=== PATIENT | male | born 1955 | race Caucasian/White ===

== ENCOUNTER 2017-07-11 09:08 | Day surgery (SDC) | payer OTHER ==
[2017-07-10 08:31] VITALS: BMI 32.1
--- NOTE | 2017-07-10 11:48 | P.GSHP ---
History of Present Illness H&P Date: 07/10/17 Chief Complaint: Heel ulcer Patient has a large heel ulcer on the right heel. - Constitutional Constitutional: Denies chills, Denies fever - EENT Eyes: denies blurred vision, denies pain Ears, nose, mouth and throat: Denies headache, Denies sore throat - Cardiovascular Cardiovascular: Denies chest pain, Denies decreased exercise tolerance, Denies dyspnea on exertion, Denies irregular heart beat, Denies orthopnea, Denies paroxysmal nocturnal dyspnea, Denies shortness of breath - Respiratory Respiratory: Denies cough, Denies cough with sputum, Denies hemoptysis - Gastrointestinal Gastrointestinal: Denies abdominal pain, Denies coffee ground emesis, Denies diarrhea, Denies hematemesis, Denies hematochezia, Denies jaundice, Denies melena, Denies nausea, Denies vomiting - Genitourinary (Female) Genitourinary: Denies dysuria, Denies hematuria - Genitourinary (Male) Genitourinary: Denies dysuria, Denies hematuria - Musculoskeletal Musculoskeletal: Denies myalgias - Integumentary Comment: Right heel ulcer Integumentary: Denies pruritus, Denies rash - Neurological Neurological: Denies numbness, Denies weakness - Psychiatric Psychiatric: Denies anxiety, Denies depression - Endocrine Endocrine: Denies fatigue, Denies weight change - Hematologic/Lymphatic Hematologic/Lymphatic: Denies easy bleeding, Denies easy bruising, Denies lymphedema - Allergic/Immunologic Allergic/Immunologic: Denies anaphylaxis, Denies angioedema, Denies urticaria Past Medical History Past Medical History: Diabetes Mellitus, Hyperlipidemia, Skin Disorder, Sleep Apnea/CPAP/BIPAP Additional Past Medical History / Comment(s): no cpap used after weight loss, wound on rt heel WITH DRESSING, NON WEIGHT BEARING, History of Any Multi-Drug Resistant Organisms: MRSA Date of last positivie culture/infection: 06/18/17 MDRO Source:: HEEL Additional Past Surgical History / Comment(s): pilonidal cyst Past Anesthesia/Blood Transfusion Reactions: No Reported Reaction Past Psychological History: No Psychological Hx Reported Smoking Status: Former smoker Past Alcohol Use History: Rare Additional Past Alcohol Use History / Comment(s): quit smoking approx 2005, smoked for 40 yrs, 1 PPD Past Drug Use History: None Reported - Past Family History Mother Family Medical History: No Reported History Medications and Allergies Home Medications Medication Instructions Recorded Confirmed Type Ascorbic Acid [Vitamin C] 1,000 mg PO DAILY 06/06/17 07/10/17 History Aspirin [Adult Low Dose Aspirin EC] 81 mg PO DAILY 06/06/17 07/10/17 History Atorvastatin [Lipitor] 20 mg PO HS 06/06/17 07/10/17 History Insulin Aspart [NovoLOG Flexpen] 0 units SQ AC-TID 06/06/17 07/10/17 History Insulin Glargine [Lantus] 32 unit SQ HS 06/06/17 07/10/17 History Lutein Tablet 2 mg PO DAILY 06/06/17 07/10/17 History Multivitamins, Thera [Multivitamin 1 tab PO DAILY 06/06/17 07/10/17 History (formulary)] Bactrim 1 tab PO BID 07/10/17 History Allergies Allergy/AdvReac Type Severity Reaction Status Date / Time oritavancin Allergy rigors, Verified 07/10/17 08:27 chills Surgical - Exam Osteopathic Statement: *. No significant issues noted on an osteopathic structural exam other than those noted in the History and Physical/Consult. - General well developed, well nourished, no distress - Eyes normal ocular movement, no icteric - ENT no hearing loss, no congestion - Neck no masses, no bruits, trachea midline - Respiratory normal expansion, normal respiratory effort, clear to auscultation - Cardiovascular Rhythm: regular - Abdomen Abdomen: soft, non tender, no guarding, no rigid, no rebound - Integumentary 2 x 2 centimeter ulcer right heel no rash, no abnormal pigmentation - Neurologic no disoriented, no combative - Musculoskeletal normal posture - Psychiatric oriented to time, oriented to person, oriented to place, speech is normal, memory intact Assessment and Plan (1) Diabetic foot ulcer associated with type 2 diabetes mellitus Status: Acute Code(s): E11.621 - TYPE 2 DIABETES MELLITUS WITH FOOT ULCER; L97.509 - NON-PRESSURE CHRONIC ULCER OTH PRT UNSP FOOT W UNSP SEVERITY SNOMED Code(s): 784657911 Plan: Patient to be admitted for split-thickness skin graft to right heel ulcer.
[~2017-07-11 09:08] MED LIST: DEXAMETHASONE SOD PHOSPHATE 10 MG/ML 1 ML VIAL IV ONE; HYDROmorphone 0.5 MG/0.5 ML SYRINGE IVP PRN; LACTATED RINGERS 1,000 ML IV SCH; LIDOCAINE 1% 20 ML VIAL (10MG/ML) FOR IV START INTRADERMA PRN; MIDAZOLAM 2 MG/2 ML VIAL IV PRN; ONDANSETRON 4 MG/2 ML VIAL IVP ONE; SCOPOLAMINE 1.5MG/72HR PATCH TRANSDERM ONE; ceFAZolin IN SWFI 2 GM/20 ML SYRINGE IVP ONE
[2017-07-11 10:10] LABS: Glucose,Whole Blood 211 mg/dL (75-99)
[2017-07-11] MEDS ORDERED: PROPOFOL 10 MG/ML 20 ML VIAL IV ONE (11:11)
[2017-07-11] MEDS ORDERED: MIDAZOLAM 2 MG/2 ML VIAL ONE (11:11)
[2017-07-11] MEDS ORDERED: PHENYLEPHRINE-0.9% NACL SYG 1 MG/10 ML SYRINGE ONE (11:11)
[2017-07-11] MEDS ORDERED: fentaNYL (PF) 50 MCG/ML 2 ML AMP ONE (11:11)
[2017-07-11] MEDS ORDERED: LACTATED RINGERS 1,000 ML IV ONE ×2 (11:32)
--- NOTE | 2017-07-11 12:06 | P.PCN ---
Date of Procedure: 07/11/17 Preoperative Diagnosis: Diabetic ulcer posterior right heel Postoperative Diagnosis: Same Procedure(s) Performed: Split-thickness skin graft right heel Anesthesia: MAC Surgeon: Ye Preciado Estimated Blood Loss (ml): 5 Pathology: none sent Condition: stable Disposition: PACU Indications for Procedure: The patient has a chronic ulcer on the right heel which is slow to close the last portion. Operative Findings: The ulcer is about 2 x 2.7 x 0.2 cm. Once debrided it is clean and bloody. Description of Procedure: With the patient in lateral position, under benefit of IV sedation, we prepped and draped in standard fashion. We used a sharp curette to do a selective debridement of the heel. We then took a 1" x 0.5" graft which was 10/1000s thick.. This was placed on the heel. It was secured with Adaptic touch which was anchored with Steri-Strips. Over this was placed absorptive silver and gel. Gauze sponges and Sheldon wrap were utilized to cover and secured this in place. The patient tolerated the procedure well and was taken recovery area in stable condition.
[2017-07-11 12:12] VITALS: TEMP 97.4
[2017-07-11 13:41] VITALS: BP 128/72; PULSE 69; RESP 18
== END 2017-07-11 13:37 | disposition home or self-care (01) ==
LOC: OR 09:08
PROVIDERS: ATTEND Thoracic Surgery (Cardiothoracic Vascular Surgery)
DX: E11.621 Type 2 diabetes mellitus with foot ulcer (principal); L97.419 Non-pressure chronic ulcer of right heel and midfoot with unspecified severity; E11.42 Type 2 diabetes mellitus with diabetic polyneuropathy; E78.5 Hyperlipidemia, unspecified; G47.30 Sleep apnea, unspecified; Z86.14 Personal history of Methicillin resistant Staphylococcus aureus infection; Z87.891 Personal history of nicotine dependence; Z79.2 Long term (current) use of antibiotics; Z79.82 Long term (current) use of aspirin; Z79.4 Long term (current) use of insulin
CPT/HCPCS: 15120; 15004; J2250; J0690; J2405; J3010; J2370; J2704

== ENCOUNTER → 2017-08-22 | Day surgery (SDC) | payer OTHER ==
[2017-08-19 15:39] VITALS: BMI 32.1
[~2017-08-22] MED LIST changes: -DEXAMETHASONE SOD PHOSPHATE 10 MG/ML 1 ML VIAL IV ONE; -HYDROmorphone 0.5 MG/0.5 ML SYRINGE IVP PRN; +INSULIN ASPART 100 UNIT/ML 1 ML 10 ML VIAL SQ ONE; +LIDOCAINE 1% 20 ML VIAL (10MG/ML) FOR IV START INTRADERMA ONE; -LIDOCAINE 1% 20 ML VIAL (10MG/ML) FOR IV START INTRADERMA PRN; -MIDAZOLAM 2 MG/2 ML VIAL IV PRN; -ONDANSETRON 4 MG/2 ML VIAL IVP ONE; -SCOPOLAMINE 1.5MG/72HR PATCH TRANSDERM ONE; -ceFAZolin IN SWFI 2 GM/20 ML SYRINGE IVP ONE
[2017-08-22 06:59] VITALS: RESP 16; TEMP 98.8
[2017-08-22 07:10] LABS: Glucose,Whole Blood 216 mg/dL (75-99)
--- NOTE | 2017-08-22 07:59 | P.GSHP ---
History of Present Illness H&P Date: 08/22/17 Chief Complaint: History of colon polyps This is a 62-year-old male referred from Dr. Harjeet Orr. Patient presents today for colonoscopy. He has history of colon polyps. His last colonoscopy was approximately 4 years ago, it was performed in [place]. Past Medical History Past Medical History: Diabetes Mellitus, Hyperlipidemia, Sleep Apnea/CPAP/BIPAP Additional Past Medical History / Comment(s): no cpap used since wt loss, MRSA rt heel-has cast on. History of Any Multi-Drug Resistant Organisms: MRSA Date of last positivie culture/infection: 06/18/17 MDRO Source:: rt HEEL Additional Past Surgical History / Comment(s): pilonidal cyst, colonoscopy Past Anesthesia/Blood Transfusion Reactions: No Reported Reaction Smoking Status: Former smoker - Past Family History Mother Family Medical History: No Reported History Brother(s) Family Medical History: Cancer Medications and Allergies Home Medications Medication Instructions Recorded Confirmed Type Ascorbic Acid [Vitamin C] 1,000 mg PO DAILY 06/06/17 08/22/17 History Aspirin [Adult Low Dose Aspirin EC] 81 mg PO DAILY 06/06/17 08/22/17 History Atorvastatin [Lipitor] 20 mg PO HS 06/06/17 08/22/17 History Insulin Aspart [NovoLOG Flexpen] 0 units SQ AC-TID 06/06/17 08/22/17 History Insulin Glargine [Lantus] 34 unit SQ HS 06/06/17 08/22/17 History Multivitamins, Thera [Multivitamin 1 tab PO DAILY 06/06/17 08/22/17 History (formulary)] Allergies Allergy/AdvReac Type Severity Reaction Status Date / Time oritavancin Allergy rigors, Verified 08/22/17 07:13 chills Surgical - Exam Vital Signs Temp Pulse Resp BP Pulse Ox 98.8 F 102 H 16 136/72 94 L 08/22/17 06:45 08/22/17 06:45 08/22/17 06:45 08/22/17 06:45 08/22/17 06:45 - General well developed, no distress - Eyes PERRL - ENT normal pinna - Neck no masses - Respiratory normal expansion - Abdomen Abdomen: soft Results - Labs Abnormal Lab Results - Last 24 Hours (Table) 01/26/18 Range/Units 07:06 POC Glucose (mg/dL) 216 H (75-99) mg/dL Assessment and Plan Assessment: History of colon polyps. We'll perform colonoscopy.
--- NOTE | 2017-08-22 08:20 | P.OP ---
Date of Procedure: 08/22/17 Preoperative Diagnosis: History of colon polyps Postoperative Diagnosis: Normal colonoscopy Procedure(s) Performed: Colonoscopy Anesthesia: MAC Surgeon: Vignesh Villasenor Pathology: none sent Condition: stable Disposition: PACU Description of Procedure: PROCEDURE: The patient was placed on the endoscopy table in the lateral position. Digital rectal examination was performed which revealed no abnormalities. The prostate was symmetrical without nodules. Flexible colonoscope was then placed in the patient's anus and passed throughout the entire colon. The ileocecal valve was visualized. The cecum, ascending, transverse, descending and sigmoid colon were normal. The rectum was normal as well. There were no masses, polyps or diverticula noted in the entire colon. SUMMARY OF FINDINGS: Normal colonoscopy.
[2017-08-22 08:33] LABS: Glucose,Whole Blood 208 mg/dL (75-99)
[2017-08-22 08:52] VITALS: BP 125/75; PULSE 80
== END | disposition home or self-care (01) ==
LOC: ORWHC2ENDO 06:29
PROVIDERS: ATTEND Surgery
DX: Z12.11 Encounter for screening for malignant neoplasm of colon (principal); I10 Essential (primary) hypertension; E78.5 Hyperlipidemia, unspecified; G47.33 Obstructive sleep apnea (adult) (pediatric); E11.9 Type 2 diabetes mellitus without complications; Z86.010 Personal history of colon polyps; Z88.1 Allergy status to other antibiotic agents; Z79.82 Long term (current) use of aspirin; Z79.4 Long term (current) use of insulin; Z79.899 Other long term (current) drug therapy; Z87.891 Personal history of nicotine dependence; Z86.14 Personal history of Methicillin resistant Staphylococcus aureus infection; Z80.9 Family history of malignant neoplasm, unspecified
CPT/HCPCS: 45378

== ENCOUNTER 2018-07-17 21:04 | Inpatient (IN) | payer MEDICARE, OTHER ==
[2018-07-17] MEDS ORDERED: ASPIRIN 81 MG PO STA (21:54)
[2018-07-17] MEDS ORDERED: methylPREDNISolone SOD SUCCI 125 MG/2 ML VIAL IV STA (21:55)
[2018-07-17] MEDS ORDERED: IPRATROPIUM-ALBUTEROL 3 ML NEB INHALATION STA (21:55)
--- NOTE | 2018-07-17 22:02 | ED ---
SOB HPI - General Chief Complaint: Shortness of Breath Stated Complaint: COPD ALLISON Time Seen by Provider: 07/17/18 21:44 Source: patient Mode of arrival: ambulatory Limitations: no limitations - History of Present Illness Initial Comments: Patient is a 63-year-old male presents with a chief complaint of shortness of breath. He states this is been gradually getting worse over the last 2 weeks. He states that he works in [place] and has to commute weekly. He denies fever or chills but states that the exertional nature of his shortness of breath has progressively gotten worse. He cannot identify an inciting incident. There are no relieving or alleviating factors. There are no previous similar episodes. - Related Data Home Medications Medication Instructions Recorded Confirmed Ascorbic Acid [Vitamin C] 1,000 mg PO DAILY 06/06/17 07/17/18 Aspirin [Adult Low Dose Aspirin EC] 81 mg PO DAILY 06/06/17 07/17/18 Atorvastatin [Lipitor] 20 mg PO HS 06/06/17 07/17/18 Insulin Aspart [NovoLOG Flexpen] 0 units SQ AC-TID 06/06/17 07/17/18 Insulin Glargine [Lantus] 40 unit SQ QAM 06/06/17 07/17/18 Multivitamins, Thera [Multivitamin 1 tab PO DAILY 06/06/17 07/17/18 (formulary)] Gabapentin 600 mg PO DAILY 07/17/18 07/17/18 [place]-3 Fatty Acids/Fish Oil [Fish 1 cap PO DAILY 07/17/18 07/17/18 Oil 1,000 mg Softgel] Allergies Allergy/AdvReac Type Severity Reaction Status Date / Time oritavancin Allergy rigors, Verified 07/17/18 21:27 chills Review of Systems ROS Statement: Those systems with pertinent positive or pertinent negative responses have been documented in the HPI. ROS Other: All systems not noted in ROS Statement are negative. Respiratory: Reports: dyspnea Past Medical History Past Medical History: Diabetes Mellitus, Hyperlipidemia, Skin Disorder, Sleep Apnea/CPAP/BIPAP Additional Past Medical History / Comment(s): no cpap used, wound on rt heel, History of Any Multi-Drug Resistant Organisms: MRSA Date of last positivie culture/infection: 06/18/17 MDRO Source:: HEEL Additional Past Surgical History / Comment(s): pilonidal cyst, colonoscopy 1-26- 18 Past Anesthesia/Blood Transfusion Reactions: No Reported Reaction Past Psychological History: No Psychological Hx Reported Smoking Status: Former smoker - Past Family History Mother Family Medical History: No Reported History Brother(s) Family Medical History: Cancer General Exam Limitations: no limitations General appearance: alert, in no apparent distress Head exam: Present: atraumatic, normocephalic Eye exam: Present: normal appearance ENT exam: Present: normal exam Neck exam: Present: normal inspection Respiratory exam: Present: respiratory distress, rales, decreased breath sounds Cardiovascular Exam: Present: regular rate, normal rhythm GI/Abdominal exam: Present: soft, distended. Absent: tenderness, guarding Rectal exam: Present: deferred Extremities exam: Present: normal inspection, other (right calf distended and tense, though patient states this is chronic and 2/2 an injury he sustained in his teens. ). Absent: calf tenderness Back exam: Present: normal inspection Neurological exam: Present: alert, oriented X3 Psychiatric exam: Present: normal affect, normal mood Skin exam: Present: warm, dry, intact Course Vital Signs 07/17/18 07/17/18 07/17/18 21:06 22:11 22:19 Temperature 98.7 F Pulse Rate 105 H 89 Respiratory 16 22 Rate Blood Pressure 122/72 O2 Sat by Pulse 77 L Oximetry 07/17/18 07/17/18 07/17/18 22:30 22:48 23:23 Temperature Pulse Rate 90 104 H 100 Respiratory 18 20 Rate Blood Pressure 136/69 118/69 O2 Sat by Pulse 91 L 91 L Oximetry Medical Decision Making - Medical Decision Making Patient presents with a chief complaint shortness of breath. On initial evaluation, the patient is hypoxic into the mid 70s, vital signs are otherwise unremarkable. EKG performed at 2117 shows sinus rhythm with a rate of 97 bpm. Segments appear to be within normal limits, no acute signs of ischemia, no previous EKGs to compare to. Patient saturating low 90s on 4 L of nasal cannula. High concern for PE versus less likely new onset CHF. Patient to be evaluated with basic labs including cardiac enzymes, will have an x-ray of the chest and CT angiogram of the chest. 1:03 AM Repeat EKG shows sinus tachycardia with a rate of 104 beats per minutes. Waveforms are similar, there are no acute signs of ischemia. Lab evaluation of this patient shows an elevated troponin at 0.39. Labs are otherwise unremarkable. Chest x-ray computed tomography scan did not show any evidence of pulmonary embolus though images are consistent with pulmonary fibrosis with pulmonary infiltrates. At this time I think that infectious etiology is less likely the patient was given an initial dose of antibiotics. Pulmonary infiltrates thought to be secondary to cardiogenic process. On reevaluation patient still saturating high 80% to low 90% 4 L of oxygen nasal cannula. He was given a 2 g transdermal nitroglycerin patch, 40 mg of Lasix, and placed on high flow nasal cannula. Prior to initiation of high flow, oxygen saturation was noted to be 94% and the patient appears be more comfortable. Blood pressure remains stable. Patient will require admission, case discussed with Dr. Ceballos who will admit this patient in the morning. Patient and his are agreeable with the care plan. - Lab Data Result diagrams: 07/17/18 21:52 07/17/18 21:52 Lab Results 07/17/18 07/17/18 07/17/18 Range/Units 21:52 21:52 21:52 WBC 9.8 (3.8-10.6) k/uL RBC 4.90 (4.30-5.90) m/uL Hgb 14.7 (13.0-17.5) gm/dL Hct 44.8 (39.0-53.0) % MCV 91.4 (80.0-100.0) fL MCH 30.1 (25.0-35.0) pg MCHC 32.9 (31.0-37.0) g/dL RDW 14.5 (11.5-15.5) % Plt Count 255 (150-450) k/uL Neutrophils % 67 % Lymphocytes % 21 % Monocytes % 5 % Eosinophils % 3 % Basophils % 0 % Neutrophils # 6.6 (1.3-7.7) k/uL Lymphocytes # 2.1 (1.0-4.8) k/uL Monocytes # 0.5 (0-1.0) k/uL Eosinophils # 0.3 (0-0.7) k/uL Basophils # 0.0 (0-0.2) k/uL VBG pH (7.31-7.41) VBG pCO2 (37-51) mmHg VBG HCO3 (24-28) mmol/L Sodium 139 (137-145) mmol/L Potassium 4.5 (3.5-5.1) mmol/L Chloride 106 (98-107) mmol/L Carbon Dioxide 23 (22-30) mmol/L Anion Gap 10 mmol/L BUN 20 (9-20) mg/dL Creatinine 0.88 (0.66-1.25) mg/dL Est GFR (CKD-EPI)AfAm >90 (>60 ml/min/1.73 sqM) Est GFR (CKD-EPI)NonAf >90 (>60 ml/min/1.73 sqM) Glucose 129 H (74-99) mg/dL Plasma Lactic Acid Fred 1.4 (0.7-2.0) mmol/L Calcium 9.2 (8.4-10.2) mg/dL Total Bilirubin 0.9 (0.2-1.3) mg/dL AST 40 (17-59) U/L ALT 31 (21-72) U/L Alkaline Phosphatase 81 (38-126) U/L Troponin I (0.000-0.034) ng/mL NT-Pro-B Natriuret Pep pg/mL Total Protein 6.9 (6.3-8.2) g/dL Albumin 3.4 L (3.5-5.0) g/dL 07/17/18 07/17/18 07/17/18 Range/Units 21:52 21:52 21:52 WBC (3.8-10.6) k/uL RBC (4.30-5.90) m/uL Hgb (13.0-17.5) gm/dL Hct (39.0-53.0) % MCV (80.0-100.0) fL MCH (25.0-35.0) pg MCHC (31.0-37.0) g/dL RDW (11.5-15.5) % Plt Count (150-450) k/uL Neutrophils % % Lymphocytes % % Monocytes % % Eosinophils % % Basophils % % Neutrophils # (1.3-7.7) k/uL Lymphocytes # (1.0-4.8) k/uL Monocytes # (0-1.0) k/uL Eosinophils # (0-0.7) k/uL Basophils # (0-0.2) k/uL VBG pH 7.37 (7.31-7.41) VBG pCO2 42 (37-51) mmHg VBG HCO3 24 (24-28) mmol/L Sodium (137-145) mmol/L Potassium (3.5-5.1) mmol/L Chloride (98-107) mmol/L Carbon Dioxide (22-30) mmol/L Anion Gap mmol/L BUN (9-20) mg/dL Creatinine (0.66-1.25) mg/dL Est GFR (CKD-EPI)AfAm (>60 ml/min/1.73 sqM) Est GFR (CKD-EPI)NonAf (>60 ml/min/1.73 sqM) Glucose (74-99) mg/dL Plasma Lactic Acid Fred (0.7-2.0) mmol/L Calcium (8.4-10.2) mg/dL Total Bilirubin (0.2-1.3) mg/dL AST (17-59) U/L ALT (21-72) U/L Alkaline Phosphatase (38-126) U/L Troponin I 0.396 H* (0.000-0.034) ng/mL NT-Pro-B Natriuret Pep 818 pg/mL Total Protein (6.3-8.2) g/dL Albumin (3.5-5.0) g/dL 07/17/18 Range/Units 23:50 WBC (3.8-10.6) k/uL RBC (4.30-5.90) m/uL Hgb (13.0-17.5) gm/dL Hct (39.0-53.0) % MCV (80.0-100.0) fL MCH (25.0-35.0) pg MCHC (31.0-37.0) g/dL RDW (11.5-15.5) % Plt Count (150-450) k/uL Neutrophils % % Lymphocytes % % Monocytes % % Eosinophils % % Basophils % % Neutrophils # (1.3-7.7) k/uL Lymphocytes # (1.0-4.8) k/uL Monocytes # (0-1.0) k/uL Eosinophils # (0-0.7) k/uL Basophils # (0-0.2) k/uL VBG pH (7.31-7.41) VBG pCO2 (37-51) mmHg VBG HCO3 (24-28) mmol/L Sodium (137-145) mmol/L Potassium (3.5-5.1) mmol/L Chloride (98-107) mmol/L Carbon Dioxide (22-30) mmol/L Anion Gap mmol/L BUN (9-20) mg/dL Creatinine (0.66-1.25) mg/dL Est GFR (CKD-EPI)AfAm (>60 ml/min/1.73 sqM) Est GFR (CKD-EPI)NonAf (>60 ml/min/1.73 sqM) Glucose (74-99) mg/dL Plasma Lactic Acid Fred (0.7-2.0) mmol/L Calcium (8.4-10.2) mg/dL Total Bilirubin (0.2-1.3) mg/dL AST (17-59) U/L ALT (21-72) U/L Alkaline Phosphatase (38-126) U/L Troponin I 0.294 H* (0.000-0.034) ng/mL NT-Pro-B Natriuret Pep pg/mL Total Protein (6.3-8.2) g/dL Albumin (3.5-5.0) g/dL Disposition Clinical Impression: Congestive heart failure, Hypoxia, Elevated troponin I level, Pulmonary fibrosis, Pulmonary infiltrate Disposition: ADMITTED IP TO THIS HOSP Condition: Fair Is patient prescribed a controlled substance at d/c from ED?: No Referrals: Harjeet Long DO [Primary Care Provider] - 1-2 days Decision to Admit Reason: Admit from EC - Out of Hospital Transfer - Req. Specs Out of Hospital Transfer - Requested Specifics: Telemetry Unit
[2018-07-17 22:07] LABS: Basophils % (A) 0 %; Eosinophils # (A) 0.3 k/uL (0-0.7); Eosinophils % (A) 3 %; HCT 44.8 % (39.0-53.0); HGB 14.7 gm/dL (13.0-17.5); Lymphocytes # (A) 2.1 k/uL (1.0-4.8); Lymphocytes % (A) 21 %; MCH 30.1 pg (25.0-35.0); MCHC 32.9 g/dL (31.0-37.0); MCV 91.4 fL (80.0-100.0); Mean Platelet Volume 6.8; Monocytes # (A) 0.5 k/uL (0-1.0); Monocytes % (A) 5 %; Neutrophils # (A) 6.6 k/uL (1.3-7.7); Neutrophils % (A) 67 %; Platelet Count 255 k/uL (150-450); RDW 14.5 % (11.5-15.5); VBG PH 7.37 (7.31-7.41); WBC 9.8 k/uL (3.8-10.6)
--- NOTE | 2018-07-17 22:12 | XR ---
EXAMINATION TYPE: XR chest 2V DATE OF EXAM: 07/17/2018 COMPARISON: NONE HISTORY: Wrist pain TECHNIQUE: Frontal and lateral views of the chest are obtained. FINDINGS: There is general coarsening of interstitial pulmonary markings. Heart size is normal. Ther e is no pleural effusion. There is no gross heart failure. There are chest leads. IMPRESSION: Extensive interstitial pulmonary infiltrates consistent with pulmonary fibrosis. Normal heart.
[2018-07-17 22:16] LABS: ALT 31 U/L (21-72); AST 40 U/L (17-59); Albumin 3.4 g/dL (3.5-5.0); Alkaline Phosphatase 81 U/L (38-126); Anion Gap 10 mmol/L; Blood Urea Nitrogen 20 mg/dL (9-20); Calcium 9.2 mg/dL (8.4-10.2); Carbon Dioxide 23 mmol/L (22-30); Chloride 106 mmol/L (98-107); Glucose 129 mg/dL (74-99); Potassium 4.5 mmol/L (3.5-5.1); Sodium 139 mmol/L (137-145); Total Bilirubin 0.9 mg/dL (0.2-1.3); Total Protein 6.9 g/dL (6.3-8.2)
--- NOTE | 2018-07-17 23:15 | CT ---
EXAMINATION TYPE: CT chest angio for PE DATE OF EXAM: 07/17/2018 COMPARISON: None HISTORY: SOB, COPD CT DLP: 616.6 mGycm Automated exposure control for dose reduction was used. CONTRAST: CT Chest for pulmonary embolism performed with with IV Contrast, patient injected with 78cc mL of Iso pavan 370. FINDINGS: There are 3-D post processed images. There is extensive interstitial infiltrate throughout the lungs. Heart is borderline enlarged. There is no pericardial effusion. There is no pleural effusion. Thoracic aorta is intact. There is no evide nce of aneurysm or dissection. I see no filling defects in the pulmonary arteries. There are a few br onchial lymph nodes measure up to 1 cm. There are multiple mediastinal lymph nodes measure up to 1.5 cm. The bony thorax is intact. There is spurring in the thoracic spine. IMPRESSION: Advanced pulmonary fibrosis. No evidence of pulmonary embolism. Mediastinal and bronchial adenopathy could relate to sarcoidosis.
[2018-07-17] MEDS ORDERED: AZITHROMYCIN 500 MG in SODIUM CHLORIDE 0.9% 250 ML IVPB STA (23:33)
[2018-07-17] MEDS ORDERED: FUROSEMIDE 10 MG/ML 4 ML VIAL IV STA (23:33)
[2018-07-17] MEDS ORDERED: NITROGLYCERIN 0.2MG/HR PATCH TRANSDERM STA (23:33)
[2018-07-17] MEDS ORDERED: cefTRIAXone 1,000 MG VIAL (IM USE) IM STA (23:33)
[2018-07-18] MEDS ORDERED: NALOXONE 0.4 MG/ML 1 ML VIAL IV PRN (01:08)
[2018-07-18 06:56] LABS: Glucose,Whole Blood 327 mg/dL (75-99)
[2018-07-18] MEDS ORDERED: methylPREDNISolone SOD SUCCI 40 MG/ML 1 ML VIAL IV SCH (08:00)
[2018-07-18] MEDS: INSULIN ASPART 100 UNIT/ML 1 ML 10 ML VIAL SQ SCH ×4 (08:58→21:19)
[2018-07-18] MEDS ORDERED: DOXYCYCLINE 100 MG CAP PO SCH (09:00)
[2018-07-18] MEDS: IPRATROPIUM-ALBUTEROL 3 ML NEB INHALATION SCH ×5 (09:55→23:36)
[2018-07-18] MEDS: BUDESONIDE 0.5 MG/2 ML NEBU INHALATION SCH ×2 (09:55→20:56)
[2018-07-18] MEDS: INSULIN DETEMIR 100 UNIT/ML 10 ML VIAL SQ SCH (10:04)
[2018-07-18 11:01] VITALS: BMI 34.2
[2018-07-18] MEDS: GABAPENTIN 300 MG CAP PO SCH (11:16)
--- NOTE | 2018-07-18 11:21 | P.HPIM ---
History of Present Illness Patient is a very pleasant 58-year-old gentleman with came in with comments of shortness of breath has been going on for about 2 weeks slowly progressively getting worse patient is presently on 6 L of oxygen doesn't have any history of COPD use to smoke about 11 years ago. 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 Patient does have fine crackles consistent with pulmonary fibrosis as well patient denied any orthopnea proximal nocturnal dyspnea patient was having dry cough for long time beyond that patient denied any fever chills nausea vomiting abdominal pain. Patient was started on systemic steroids. Patient is diabetic does have minimally elevated troponins of 0.3 which trended down. EKG showed minor nonspecific ST depressions not significant on the lateral leads. Review of Systems REVIEW OF SYSTEMS: CONSTITUTIONAL: No fever, no malaise, no fatigue. HEENT: No recent visual problems or hearing problems. Denied any sore throat. CARDIOVASCULAR: No chest pain, orthopnea, PND, no palpitations, no syncope. PULMONARY:, no hemoptysis. GASTROINTESTINAL: No diarrhea, no nausea, no vomiting, no abdominal pain. NEUROLOGICAL: No headaches, no weakness, no numbness. HEMATOLOGICAL: Denies any bleeding or petechiae. GENITOURINARY: Denies any burning micturition, frequency, or urgency. MUSCULOSKELETAL/RHEUMATOLOGICAL: Denies any joint pain, swelling, or any muscle pain. ENDOCRINE: Denies any polyuria or polydipsia. The rest of the 14-point review of systems is negative. Past Medical History Past Medical History: COPD, Diabetes Mellitus, Hyperlipidemia, Skin Disorder, Sleep Apnea/CPAP/BIPAP Additional Past Medical History / Comment(s): no cpap used, previous wound on rt heel, told you had COPD but never had formal testing History of Any Multi-Drug Resistant Organisms: MRSA Date of last positivie culture/infection: 06/18/17 MDRO Source:: HEEL Additional Past Surgical History / Comment(s): pilonidal cyst, colonoscopy Past Anesthesia/Blood Transfusion Reactions: No Reported Reaction Smoking Status: Former smoker - Past Family History Mother Family Medical History: No Reported History Additional Family Medical History / Comment(s): congenital heart defects Brother(s) Family Medical History: Cancer Father Family Medical History: Hypertension Medications and Allergies Home Medications Medication Instructions Recorded Confirmed Type Ascorbic Acid [Vitamin C] 1,000 mg PO DAILY 06/06/17 07/17/18 History Aspirin [Adult Low Dose Aspirin EC] 81 mg PO DAILY 06/06/17 07/17/18 History Atorvastatin [Lipitor] 20 mg PO HS 06/06/17 07/17/18 History Insulin Aspart [NovoLOG Flexpen] 0 units SQ AC-TID 06/06/17 07/17/18 History Insulin Glargine [Lantus] 40 unit SQ QAM 06/06/17 07/17/18 History Multivitamins, Thera [Multivitamin 1 tab PO DAILY 06/06/17 07/17/18 History (formulary)] Gabapentin 600 mg PO DAILY 07/17/18 07/17/18 History [place]-3 Fatty Acids/Fish Oil [Fish 1 cap PO DAILY 07/17/18 07/17/18 History Oil 1,000 mg Softgel] Allergies Allergy/AdvReac Type Severity Reaction Status Date / Time oritavancin Allergy rigors, Verified 07/17/18 21:27 chills Physical Exam Vitals: Vital Signs Temp Pulse Pulse Resp BP BP Pulse Ox 07/18/18 08:00 97.5 F L 91 18 125/69 94 L 07/18/18 06:00 98.5 F 85 20 109/55 97 07/18/18 02:05 98 22 07/18/18 02:00 97.8 F 98 20 128/64 93 L 07/18/18 01:09 96 18 109/69 96 07/17/18 23:23 100 20 118/69 91 L 07/17/18 22:48 104 H 18 136/69 91 L 07/17/18 22:30 90 07/17/18 22:19 22 07/17/18 22:11 89 07/17/18 21:06 98.7 F 105 H 16 122/72 77 L Intake and Output 07/17/18 07/18/18 07/18/18 22:59 06:59 14:59 Other: Voiding Method Urinal # Voids 1 Weight 108.862 kg 111.4 kg 111.4 kg PHYSICAL EXAMINATION: GENERAL: The patient is alert and oriented x3, not in any acute distress. Well developed, well nourished. HEENT: Pupils are round and equally reacting to light. EOMI. No scleral icterus. No conjunctival pallor. Normocephalic, atraumatic. No pharyngeal erythema. No thyromegaly. CARDIOVASCULAR: S1 and S2 present. No murmurs, rubs, or gallops. PULMONARY: Diffuse fine bilateral crackles ABDOMEN: Soft, nontender, nondistended, normoactive bowel sounds. No palpable organomegaly. MUSCULOSKELETAL: No joint swelling or deformity. EXTREMITIES: No cyanosis, clubbing, or pedal edema. NEUROLOGICAL: Gross neurological examination did not reveal any focal deficits. SKIN: No rashes. Results CBC & Chem 7: 07/17/18 21:52 07/17/18 21:52 Labs: Abnormal Lab Results - Last 24 Hours (Table) 07/17/18 07/17/18 07/17/18 Range/Units 21:52 21:52 23:50 Glucose 129 H (74-99) mg/dL POC Glucose (mg/dL) (75-99) mg/dL Troponin I 0.396 H* 0.294 H* (0.000-0.034) ng/mL Albumin 3.4 L (3.5-5.0) g/dL 07/18/18 Range/Units 06:54 Glucose (74-99) mg/dL POC Glucose (mg/dL) 327 H (75-99) mg/dL Troponin I (0.000-0.034) ng/mL Albumin (3.5-5.0) g/dL Thrombosis Risk Factor Assmnt - Choose All That Apply Any of the Below Risk Factors Present?: Yes Each Factor Represents 1 point: Abnormal pulmonary function (COPD), Obesity ( BMI >25), Serious lung disease incl. pneumonia (< 1month), Swollen legs (current ) Other Risk Factors: Yes Each Risk Factor Represents 2 Points: Age 61-74 years Thrombosis Risk Factor Assessment Total Risk Factor Score: 6 Thrombosis Risk Factor Assessment Level: High Risk Assessment and Plan Plan: -Acute hypoxic respiratory failure probably secondary to pulmonary fibrosis with a competent of mild COPD which was never diagnosed patient was started on systemic steroids dioxide and will be continued there is no evidence of pneumonia ceftriaxone as azithromycin were discontinued -Mildly elevated troponin secondary to hypoxemia type II non-ST elevation myocardial infarction etiology will evaluate the patient will obtain echocardiogram. -Type 2 diabetes mellitus patient's blood sugars are elevated because of the systemic steroids will increase the dose of Lantus and patient will be on steroids scale insulin -Hyperlipidemia -Sleep apnea and uses CPAP machine -Possible mild COPD with mild acute exacerbation
--- NOTE | 2018-07-18 11:39 | P.CRDCN ---
History of Present Illness Consult date: 07/18/18 Requesting physician: Moni Pizarro Consult reason: chest pain, shortness of breath Chief complaint: Exertional shortness of breath and chest History of present illness: This is a pleasant 63-year-old gentleman who has history of diabetes, hyperlipidemia, no hypertension, current nonsmoker, however patient has smoked heavily in the past for about 40 years of 1 pack per day smoker. Presents to the hospital mainly with symptoms of exertional shortness of breath. According to the patient, he has noticed these symptoms become quite severe over the past 2 weeks, the states that she's noticed it for over a year that he's progressively more and more exertionally short of breath. The patient on his job used to walk several miles per day without any dyspnea or problems at all, he states now he cannot walk from his hotel room to his truck without getting severely short of breath, he also states that he has significant chest heaviness and pressure at the time that these symptoms occur. Chest x-ray showed extensive interstitial pulmonary infiltrates consistent with pulmonary fibrosis. CAT scan of the chest showed advanced pulmonary fibrosis, no evidence of any pulmonary embolism. Mediastinotomy and bronchial adenopathy could relate to sarcoidosis. EKG shows sinus tachycardia with nonspecific ST-T wave changes ST depression in the lateral leads.. EKG shows normal sinus rhythm with PACs, nonspecific ST-T wave changes. Blood pressure on arrival here 122/70 with a heart rate in the low 100s, 77% on room air, temperature 98.7. Blood pressure this morning 125/60 with a heart rate in the 90s, 94% on 8 L of oxygen. White blood cell count 9.8, hemoglobin 14.7, platelet count 255. PH on admission 7.3, pCO2 42, HCO3 24. Sodium 139, potassium 4.5, BUN 20 , creatinine 0.8. BNP level 818. Troponin 0.39, 0.29. According to the patient, he has been told in the past has some mild COPD, never has followed with a pulmonary doctor. He has never been told in the past to have any issues with pulmonary fibrosis. Past Medical History Past Medical History: COPD, Diabetes Mellitus, Hyperlipidemia, Skin Disorder, Sleep Apnea/CPAP/BIPAP Additional Past Medical History / Comment(s): no cpap used, previous wound on rt heel, told you had COPD but never had formal testing History of Any Multi-Drug Resistant Organisms: MRSA Date of last positivie culture/infection: 06/18/17 MDRO Source:: HEEL Additional Past Surgical History / Comment(s): pilonidal cyst, colonoscopy Past Anesthesia/Blood Transfusion Reactions: No Reported Reaction Smoking Status: Former smoker - Past Family History Mother Family Medical History: No Reported History Additional Family Medical History / Comment(s): congenital heart defects Brother(s) Family Medical History: Cancer Father Family Medical History: Hypertension Medications and Allergies Home Medications Medication Instructions Recorded Confirmed Type Ascorbic Acid [Vitamin C] 1,000 mg PO DAILY 06/06/17 07/17/18 History Aspirin [Adult Low Dose Aspirin EC] 81 mg PO DAILY 06/06/17 07/17/18 History Atorvastatin [Lipitor] 20 mg PO HS 06/06/17 07/17/18 History Insulin Aspart [NovoLOG Flexpen] 0 units SQ AC-TID 06/06/17 07/17/18 History Insulin Glargine [Lantus] 40 unit SQ QAM 06/06/17 07/17/18 History Multivitamins, Thera [Multivitamin 1 tab PO DAILY 06/06/17 07/17/18 History (formulary)] Gabapentin 600 mg PO DAILY 07/17/18 07/17/18 History [place]-3 Fatty Acids/Fish Oil [Fish 1 cap PO DAILY 07/17/18 07/17/18 History Oil 1,000 mg Softgel] Allergies Allergy/AdvReac Type Severity Reaction Status Date / Time oritavancin Allergy rigors, Verified 07/17/18 21:27 chills Physical Exam Vitals: Vital Signs Temp Pulse Pulse Resp BP BP Pulse Ox 07/18/18 08:00 97.5 F L 91 18 125/69 94 L 07/18/18 06:00 98.5 F 85 20 109/55 97 07/18/18 02:05 98 22 07/18/18 02:00 97.8 F 98 20 128/64 93 L 07/18/18 01:09 96 18 109/69 96 07/17/18 23:23 100 20 118/69 91 L 07/17/18 22:48 104 H 18 136/69 91 L 07/17/18 22:30 90 07/17/18 22:19 22 07/17/18 22:11 89 12/21/18 21:06 98.7 F 105 H 16 122/72 77 L Intake and Output 07/17/18 07/18/18 07/18/18 22:59 06:59 14:59 Other: Voiding Method Urinal # Voids 1 Weight 108.862 kg 111.4 kg 111.4 kg PHYSICAL EXAMINATION: GENERAL: 63-year-old gentleman in no acute distress at the time of my examination HEENT: Head is atraumatic, normocephalic. Pupils equal, round. Sclera anicteric. Conjunctiva are clear. Mucous membranes of the mouth are moist. Neck is supple. There is no elevated jugular venous pressure. No carotid bruit is heard. HEART EXAMINATION: Heart S1, S2 normal. No murmur or gallop heard. CHEST EXAMINATION: Lungs reveal fibrotic rales to the bases, otherwise clear ABDOMEN: Soft, nontender. Bowel sounds are heard. No organomegaly noted. EXTREMITIES: 2+ peripheral pulses with trace evidence of peripheral edema and no calf tenderness noted. NEUROLOGIC patient is awake, alert and oriented X3. . Results 07/17/18 21:52 07/17/18 21:52 Cardiac Enzymes 07/17/18 07/17/18 07/17/18 Range/Units 21:52 21:52 23:50 AST 40 (17-59) U/L Troponin I 0.396 H* 0.294 H* (0.000-0.034) ng/mL CBC 07/17/18 Range/Units 21:52 WBC 9.8 (3.8-10.6) k/uL RBC 4.90 (4.30-5.90) m/uL Hgb 14.7 (13.0-17.5) gm/dL Hct 44.8 (39.0-53.0) % Plt Count 255 (150-450) k/uL Comprehensive Metabolic Panel 07/17/18 Range/Units 21:52 Sodium 139 (137-145) mmol/L Potassium 4.5 (3.5-5.1) mmol/L Chloride 106 (98-107) mmol/L Carbon Dioxide 23 (22-30) mmol/L BUN 20 (9-20) mg/dL Creatinine 0.88 (0.66-1.25) mg/dL Glucose 129 H (74-99) mg/dL Calcium 9.2 (8.4-10.2) mg/dL AST 40 (17-59) U/L ALT 31 (21-72) U/L Alkaline Phosphatase 81 (38-126) U/L Total Protein 6.9 (6.3-8.2) g/dL Albumin 3.4 L (3.5-5.0) g/dL Current Medications Generic Name Dose Route Start Last Admin Trade Name Freq PRN Reason Stop Dose Admin Albuterol/Ipratropium 3 ml 07/18/18 08:00 07/18/18 09:55 Duoneb 0.5 Mg-3 Mg/3 Ml Soln INHALATION Not Given RT-Q4H [facility] Aspirin 81 mg 07/19/18 09:00 Aspirin PO DAILY [facility] Atorvastatin Calcium 20 mg 07/18/18 21:00 Lipitor PO HS [facility] Budesonide 0.5 mg 07/18/18 08:00 07/18/18 09:55 Pulmicort INHALATION Not Given RT-BID [facility] Doxycycline Monohydrate 100 mg 07/18/18 09:00 Vibramycin PO BID [facility] Gabapentin 600 mg 07/18/18 10:00 Neurontin PO DAILY [facility] Insulin Aspart 0 unit 07/18/18 07:46 07/18/18 08:58 Novolog SQ Not Given ACHS [facility] Protocol Insulin Detemir 50 unit 07/18/18 10:00 07/18/18 10:04 Levemir SQ Not Given QAM [facility] Methylprednisolone Sodium Succinate 60 mg 07/18/18 12:00 Solu-Medrol IV Q6HR [facility] Naloxone HCl 0.2 mg 07/18/18 01:08 Narcan IV Q2M PRN Opioid Reversal Intake and Output 07/17/18 07/18/18 07/18/18 22:59 06:59 14:59 Other: Voiding Method Urinal # Voids 1 Weight 108.862 kg 111.4 kg 111.4 kg Patient Weight 07/19/18 06:59 Weight 111.4 kg 07/17/18 21:52 07/17/18 21:52 EKG Interpretations (text) EKG shows a sinus tachycardia with ST depression noted in the lateral leads. Assessment and Plan Plan: Assessment and plan #1 symptoms of progressively worsening exertional shortness of breath, could be secondary to pulmonary fibrosis, chest x-ray and CAT scan of the chest reveal pulmonary fibrosis., Oxygen level on admission was 77%. He is currently on 8 L of oxygen satting 94%. Symptoms could also have been related to a possible non-Q-wave CO. EKG shows a sinus tachycardia with ST depression noted in the lateral leads. Troponins 0.39, 0.29. Troponin abnormality could be secondary to non-Q-wave CO, could also be secondary to severe hypoxia on admission. No clear-cut evidence of congestive heart failure, BNP level 818. #2 diabetes, for 20 years #3 hyperlipidemia #4 prior history of smoking Plan We will obtain an echocardiogram with Doppler study to assess the patient's LV function. Obtain a third troponin value. Pulmonary consultation requested. Further recommendations to follow. DNP note has been reviewed, I agree with a documented findings and plan of care. Patient was seen and examined.
[2018-07-18 11:53] LABS: Glucose,Whole Blood 306 mg/dL (75-99)
[2018-07-18] MEDS ORDERED: INSULIN ASPART 100 UNIT/ML 1 ML 10 ML VIAL SQ SCH (12:30)
[2018-07-18] MEDS: methylPREDNISolone SOD SUCCI 125 MG/2 ML VIAL IV SCH ×3 (12:35→23:01)
--- NOTE | 2018-07-18 16:49 | ECHOF ---
Referral Reason:elevated troponin MEASUREMENTS -------- HEIGHT: 162.6 cm WEIGHT: 111.1 kg BP: RVIDd: 2.9 cm (< 3.3) IVSd: 1.4 cm (0.6 - 1.1) LVIDd: 4.7 cm (3.9 - 5.3) LVPWd: 1.3 cm (0.6 - 1.1) IVSs: 1.6 cm LVIDs: 3.4 cm LVPWs: 1.7 cm Ao Diam: 3.1 cm (2.0 - 3.7) AV Cusp: 2.2 cm (1.5 - 2.6) LA Diam: 4.3 cm (2.7 - 3.8) MV EXCURSION: 18.395 mm (> 18.000) MV EF SLOPE: 64 mm/s (70 - 150) EPSS: 0.3 cm MV E Donell: 0.40 m/s MV DecT: 300 ms MV A Donell: 0.81 m/s MV E/A Ratio: 0.50 RAP: 5.00 mmHg RVSP: 57.65 mmHg FINDINGS -------- Sinus rhythm. This was a techncally difficult study with suboptimal views, , Lumason utilized for enhancement of im ages. The left ventricular size is normal. There is moderate concentric left ventricular hypertrophy. O verall left ventricular systolic function is normal with, an EF between 55 - 60 %. The right ventricle is normal in size. The left atrial size is normal. The right atrial size is normal. 5.0mg OF Lumason UTLIZED: 2 OR MORE WALL SEGMENTS NOT VISUALIZED. There is mild aortic valve sclerosis. There is no evidence of aortic regurgitation. Mild mitral annular calcification present. There is trace to mild mitral regurgitation. Moderate tricuspid regurgitation present. There is moderate pulmonary hypertension. The right elpidio tricular systolic pressure, as measured by Doppler, is 57.65mmHg. Trace/mild (physiologic) pulmonic regurgitation. The aortic root size is normal. There is no pericardial effusion. CONCLUSIONS -------- 1. This was a techncally difficult study with suboptimal views, , Lumason utilized for enhancement of images. 2. The left ventricular size is normal. 3. There is moderate concentric left ventricular hypertrophy. 4. Overall left ventricular systolic function is normal with, an EF between 55 - 60 %. 5. The right ventricle is normal in size. 6. The left atrial size is normal. 7. The right atrial size is normal. 8. 5.0mg OF Lumason UTLIZED: 2 OR MORE WALL SEGMENTS NOT VISUALIZED. 9. There is mild aortic valve sclerosis. 10. Mild mitral annular calcification present. 11. There is trace to mild mitral regurgitation. 12. Moderate tricuspid regurgitation present. 13. There is moderate pulmonary hypertension. 14. The right ventricular systolic pressure, as measured by Doppler, is 57.65mmHg. 15. Trace/mild (physiologic) pulmonic regurgitation. 16. The aortic root size is normal. 17. There is no pericardial effusion. PLASTIC MIXER: Humaira Sol RDCS
[2018-07-18 17:48] LABS: Glucose,Whole Blood 246 mg/dL (75-99)
--- NOTE | 2018-07-18 19:27 | CONS ---
CONSULTATION Wyatt Hernandez is a 63-year-old male who presented to the ED with increasing shortness of breath of about 2 weeks duration. 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 He also had a cough. He was seen in the ER, was quite hypoxic and was admitted for further evaluation. CT scan of the chest was done which was negative for PE, but showed diffuse alveolar infiltrates as well as peripheral fibrotic changes consistent with interstitial type lung disease. He does not have a previous history of interstitial lung disease and states that he is only been short of breath for 2 weeks. However, upon further questioning his , she states that she has noticed that he has been more short of breath for approximately 1 year. He denies any fever, chills or rigors. PAST MEDICAL HISTORY: Positive for diabetes mellitus type 2, insulin requiring. History of hypercholesterolemia, history of wound to his foot, MRSA infection, history of pilonidal cyst. History of previous colonoscopy. FAMILY HISTORY: Negative for lung fibrosis in his family. MEDICATIONS: Prior to admission were ascorbic acid, aspirin, atorvastatin, NovoLog, Lantus, multivitamin, and gabapentin. REVIEW OF SYSTEMS: Noncontributory. 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 He is a former smoker. PHYSICAL EXAMINATION: He was sitting in bed. He was on high-flow oxygen at 8 L/minute. His blood pressure is 128/64, respiratory rate of 18, pulse are 94, O2 saturation is 94% on 8 L by nasal cannula. HEENT reveals pupils that are equal. Chest reveals bilateral Velcro type crackles, diffuse, more in the lower zones than the upper zones. Cardiovascular system with an S1, S2. No S3, S4. There is a short systolic murmur. ABDOMEN: Soft there is trace to 1+ pedal edema. LABS: Reveal a white count of 9.8, hemoglobin of 14.7, sodium 139, potassium 4.5, chloride 106, bicarb 23, BUN 20, creatinine 0.88. Sedimentation rate is 30. Troponin is 0.396. C-reactive protein is 30.6. NT proBNP is 818, albumin of 3.4. CT scan of the chest shows bilateral alveolar type infiltrates with some interstitial fibrotic changes and some honeycombing in the periphery. IMPRESSION: At this time: 1. Acute hypoxic respiratory failure due to interstitial lung disease. 2. Possible hypersensitivity pneumonitis versus idiopathic pulmonary fibrosis versus autoimmune disease. 3. Diabetes mellitus. At this point in time, would start him and keep him on a trial of steroids. There is no evidence of infection at this time and we will discontinue his antibiotics including his doxycycline. Would check a hypersensitivity pneumonitis panel, SETH, rheumatoid factor, sedimentation rate and C-reactive protein. Depending on his response to steroids, he may need further invasive testing such as bronchoscopy versus an open lung biopsy which can be done in a few weeks as an outpatient if he does not significantly improve and there is no other reason for his fibrotic changes, would do physiological testing including a pulmonary function test and exercise test as an outpatient and would consider pulmonary rehab and supplemental oxygen at home for him. Depending on how he does, we should make further changes to his care. He and his were counseled regarding his condition and this approach and has a fair understanding of recommendations. MMULIL / IJN: [id number] /
[2018-07-18 20:22] LABS: Hemoglobin A1C 8.8 % (4.0-6.0)
[2018-07-18 20:54] LABS: Glucose,Whole Blood 331 mg/dL (75-99)
[2018-07-18] MEDS: ATORVASTATIN 20 MG TAB PO SCH (21:19)
[2018-07-18 23:11] LABS: Rheumatoid Factor 14 IU/mL (0-15)
[2018-07-19] MEDS: IPRATROPIUM-ALBUTEROL 3 ML NEB INHALATION SCH ×6 (03:51→23:21)
[2018-07-19 06:15] LABS: Basophils % (A) 0 %; Eosinophils # (A) 0.1 k/uL (0-0.7); Eosinophils % (A) 1 %; HCT 41.2 % (39.0-53.0); HGB 12.7 gm/dL (13.0-17.5); Hypochromasia Slight; Lymphocytes # (A) 0.9 k/uL (1.0-4.8); Lymphocytes % (A) 6 %; MCH 28.6 pg (25.0-35.0); MCHC 30.7 g/dL (31.0-37.0); MCV 93.2 fL (80.0-100.0); Mean Platelet Volume 6.8; Monocytes # (A) 0.4 k/uL (0-1.0); Monocytes % (A) 3 %; Neutrophils # (A) 13.4 k/uL (1.3-7.7); Neutrophils % (A) 90 %; Platelet Count 295 k/uL (150-450); RBC 4.43 m/uL (4.30-5.90); RDW 14.4 % (11.5-15.5)
[2018-07-19 06:17] LABS: Glucose,Whole Blood 268 mg/dL (75-99)
[2018-07-19 06:26] LABS: Anion Gap 7 mmol/L; Blood Urea Nitrogen 23 mg/dL (9-20); Calcium 8.8 mg/dL (8.4-10.2); Carbon Dioxide 25 mmol/L (22-30); Chloride 103 mmol/L (98-107); Glucose 300 mg/dL (74-99); Magnesium 2.4 mg/dL (1.6-2.3); Potassium 5.4 mmol/L (3.5-5.1); Sodium 135 mmol/L (137-145)
[2018-07-19] MEDS: methylPREDNISolone SOD SUCCI 125 MG/2 ML VIAL IV SCH (06:42)
[2018-07-19] MEDS: INSULIN ASPART 100 UNIT/ML 1 ML 10 ML VIAL SQ SCH ×4 (06:42→21:51)
[2018-07-19] MEDS: BUDESONIDE 0.5 MG/2 ML NEBU INHALATION SCH (08:41)
[2018-07-19] MEDS: INSULIN DETEMIR 100 UNIT/ML 10 ML VIAL SQ SCH (08:53)
[2018-07-19] MEDS: GABAPENTIN 300 MG CAP PO SCH (08:54)
[2018-07-19] MEDS: ASPIRIN 81 MG PO SCH (08:54)
[2018-07-19] MEDS ORDERED: SODIUM POLYSTYRENE SULFONATE 15 GM/60 ML BOTTLE PO STA (10:18)
[2018-07-19] MEDS: predniSONE 20 MG TAB PO SCH (11:06)
[2018-07-19 12:14] LABS: Glucose,Whole Blood 289 mg/dL (75-99)
--- NOTE | 2018-07-19 12:43 | P.PN ---
Subjective 63-year-old gentleman was admitted secondary to acute hypoxic respiratory failure from possible pulmonary fibrosis patient is undergoing further workup for pulmonary fibrosis echocardiogram showed moderate pulmonary hypertension. Patient is undergoing artery workup for pulmonary fibrosis. Patient's oxygen requirements has come down from my 8 L to 2 L today but still short of breath with minimal ambulation. Patient is on high-dose steroids leading to hyperkalemia which will treat with Kayexalate, blood sugars are significantly elevated secondary to systemic steroids to my increase the dose of long-acting insulin along with the continuation of pre-meal insulin and sliding scale. Constitutional: Denied any fatigue denied any fever. Cardio vascular: denied any chest pain, palpitations Gastrointestinal denied any nausea vomiting Pulmonary: As mentioned in HPI Neurologic denied any new focal deficits All inpatient medications were reviewed and appropriate changes in these medications as dictated in the interval history and assessment and plan. Objective - Vital Signs Vital signs: Vital Signs Temp 97.8 F 07/19/18 07:54 Pulse 80 07/19/18 12: Resp 18 07/19/18 07:54 BP 120/66 07/19/18 07:54 Pulse Ox 93 L 07/19/18 08:42 Intake & Output 07/18/18 07/19/18 07/19/18 18:59 06:59 18:59 Intake Total 240 Output Total 550 Balance -550 240 Weight 111.4 kg 110.4 kg Intake: Oral 240 Output: Urine 550 Other: Voiding Method Urinal # Voids 1 1 - Exam PHYSICAL EXAMINATION: GENERAL: The patient is alert and oriented x3, not in any acute distress. Well developed, well nourished. HEENT: Pupils are round and equally reacting to light. EOMI. No scleral icterus. No conjunctival pallor. Normocephalic, atraumatic. No pharyngeal erythema. No thyromegaly. CARDIOVASCULAR: S1 and S2 present. No murmurs, rubs, or gallops. PULMONARY: Diffuse fine bilateral crackles ABDOMEN: Soft, nontender, nondistended, normoactive bowel sounds. No palpable organomegaly. MUSCULOSKELETAL: No joint swelling or deformity. EXTREMITIES: No cyanosis, clubbing, or pedal edema. NEUROLOGICAL: Gross neurological examination did not reveal any focal deficits. SKIN: No rashes. - Labs CBC & Chem 7: 07/19/18 05:31 07/19/18 05:31 Labs: Abnormal Lab Results - Last 24 Hours (Table) 07/18/18 07/18/18 07/18/18 Range/Units 05:47 05:47 17:25 WBC (3.8-10.6) k/uL Hgb (13.0-17.5) gm/dL MCHC (31.0-37.0) g/dL Neutrophils # (1.3-7.7) k/uL Lymphocytes # (1.0-4.8) k/uL ESR 30 H (0-15) mm/hr Sodium (137-145) mmol/L Potassium (3.5-5.1) mmol/L BUN (9-20) mg/dL Glucose (74-99) mg/dL POC Glucose (mg/dL) 246 H (75-99) mg/dL Hemoglobin A1c 8.8 H (4.0-6.0) % Magnesium (1.6-2.3) mg/dL 07/18/18 07/19/18 07/19/18 Range/Units 20:52 05:31 05:31 WBC 15.0 H (3.8-10.6) k/uL Hgb 12.7 L (13.0-17.5) gm/dL MCHC 30.7 L (31.0-37.0) g/dL Neutrophils # 13.4 H (1.3-7.7) k/uL Lymphocytes # 0.9 L (1.0-4.8) k/uL ESR (0-15) mm/hr Sodium 135 L (137-145) mmol/L Potassium 5.4 H (3.5-5.1) mmol/L BUN 23 H (9-20) mg/dL Glucose 300 H (74-99) mg/dL POC Glucose (mg/dL) 331 H (75-99) mg/dL Hemoglobin A1c (4.0-6.0) % Magnesium 2.4 H (1.6-2.3) mg/dL 07/19/18 07/19/18 Range/Units 06:13 12:10 WBC (3.8-10.6) k/uL Hgb (13.0-17.5) gm/dL MCHC (31.0-37.0) g/dL Neutrophils # (1.3-7.7) k/uL Lymphocytes # (1.0-4.8) k/uL ESR (0-15) mm/hr Sodium (137-145) mmol/L Potassium (3.5-5.1) mmol/L BUN (9-20) mg/dL Glucose (74-99) mg/dL POC Glucose (mg/dL) 268 H 289 H (75-99) mg/dL Hemoglobin A1c (4.0-6.0) % Magnesium (1.6-2.3) mg/dL Microbiology - Last 24 Hours (Table) 07/17/18 21:52 Blood Culture - Preliminary Blood No Growth after 24 hours Assessment and Plan Plan: -Acute hypoxic respiratory failure probably secondary to pulmonary fibrosis with a competent of mild COPD which was never diagnosed patient is on systemic steroids dioxide and will be continued there is no evidence of pneumonia -Mildly elevated troponin secondary to hypoxemia type II non-ST elevation myocardial infarction etiology echocardiac showed moderate pulmonary hypertension no wall motion abnormalities no further intervention from cardiac perspective -Type 2 diabetes mellitus patient's blood sugars are elevated because of the systemic steroids will increase the dose of Lantus and patient will be on steroids scale insulin -Hyperlipidemia -Sleep apnea and uses CPAP machine -Possible mild COPD with mild acute exacerbation
--- NOTE | 2018-07-19 13:49 | CONS ---
CONSULTATION DATE OF SERVICE: 07/19/2018 He was seen again on 07/19/2018. He seems to be doing somewhat better overall. Initially, he stated that he had no change in his symptomatology, but subsequently stated that he is definitely not worse and is probably somewhat better. PHYSICAL EXAMINATION: On physical examination his vital signs reveal a respiratory rate of 18, pulse rate of 77, temperature 97.8, blood pressure 120/66, O2 saturation on 2 L by nasal cannula is 92% compared to 77% on room air when he was admitted to the hospital. HEENT reveals no new changes. Chest reveals bilateral Velcro type crackles but only in the lower half of the chest and he is doing somewhat better in the upper zones. No wheezing. Cardiovascular system reveals an S1, S2. Abdomen is soft. There is no pedal edema. LABS: Reveal a rheumatoid factor that is borderline high at 15. Sedimentation rate was high. IMPRESSION: 1. Interstitial lung disease, which may be due to IPF versus other etiology, await further lab testing. 2. Some of the interstitial changes are chronic, some seem to be somewhat acute with alveolar filling. Would continue high-dose steroids, switch him to oral prednisone and do not taper it. Would keep him on 60 mg of prednisone at least for 1 week, which can be done as an outpatient. Subsequent physiological testing. Any biopsies that would be required would typically have to be done down the line depending on response to treatment and physiological changes. Depending on how he does, we should make further changes to his care. I did counselor marriage and family him extensively regarding his condition and this approach. MMULIL / ARAMN: [id number] /
--- NOTE | 2018-07-19 14:54 | P.PN ---
Subjective Progress Note Date: 07/19/18 This is a pleasant 63-year-old gentleman who has history of diabetes, hyperlipidemia, no hypertension, current nonsmoker, however patient has smoked heavily in the past for about 40 years of 1 pack per day smoker. Presents to the hospital mainly with symptoms of exertional shortness of breath. According to the patient, he has noticed these symptoms become quite severe over the past 2 weeks, the states that she's noticed it for over a year that he's progressively more and more exertionally short of breath. The patient on his job used to walk several miles per day without any dyspnea or problems at all, he states now he cannot walk from his hotel room to his truck without getting severely short of breath, he also states that he has significant chest heaviness and pressure at the time that these symptoms occur. Chest x-ray showed extensive interstitial pulmonary infiltrates consistent with pulmonary fibrosis. CAT scan of the chest showed advanced pulmonary fibrosis, no evidence of any pulmonary embolism. Mediastinotomy and bronchial adenopathy could relate to sarcoidosis. EKG shows sinus tachycardia with nonspecific ST-T wave changes ST depression in the lateral leads.. EKG shows normal sinus rhythm with PACs, nonspecific ST-T wave changes. Blood pressure on arrival here 122/70 with a heart rate in the low 100s, 77% on room air, temperature 98.7. Blood pressure this morning 125/60 with a heart rate in the 90s, 94% on 8 L of oxygen. White blood cell count 9.8, hemoglobin 14.7, platelet count 255. PH on admission 7.3, pCO2 42, HCO3 24. Sodium 139, potassium 4.5, BUN 20 , creatinine 0.8. BNP level 818. Troponin 0.39, 0.29. According to the patient, he has been told in the past has some mild COPD, never has followed with a pulmonary doctor. He has never been told in the past to have any issues with pulmonary fibrosis. 07/19:patient has been seen by Dr. JEROME Salinas for interstitial lung disease may be IPF versus other etiology and lab testing will be pending. He is continued on high-dose steroids and plan switch him to oral prednisone.echocardiogram reveals EF of 55-60% with moderate concentric left hypertrophy, mild mitral regurgitation, moderate tricuspid regurgitation, moderate pulmonary hypertension.his heart rate is running in the 70s and 80s, blood pressure 120/79 , pulse ox 90% on 2 L nasal cannula. White count is 15, hemoglobin 12.7. Sodium 135, potassium 5.4, BUN 23 and creatinine 0.72. Objective - Vital Signs Vital signs: Vital Signs Temp 96.0 F L 07/19/18 12:00 Pulse 80 07/19/18 12: Resp 18 07/19/18 12:00 BP 120/79 07/19/18 12:00 Pulse Ox 90 L 07/19/18 12:00 Intake & Output 07/18/18 07/19/18 07/19/18 18:59 06:59 18:59 Intake Total 240 240 Output Total 550 Balance -550 240 240 Weight 111.4 kg 110.4 kg Intake: Oral 240 240 Output: Urine 550 Other: Voiding Method Urinal # Voids 1 1 4 - Exam GENERAL: 63-year-old gentleman in no acute distress at the time of my examination HEENT: Head is atraumatic, normocephalic. Pupils equal, round. Sclera anicteric. Conjunctiva are clear. Mucous membranes of the mouth are moist. Neck is supple. There is no elevated jugular venous pressure. No carotid bruit is heard. HEART EXAMINATION: Heart S1, S2 normal. No murmur or gallop heard. CHEST EXAMINATION: Lungs reveal fibrotic rales to the bases, otherwise clear ABDOMEN: Soft, nontender. Bowel sounds are heard. No organomegaly noted. EXTREMITIES: 2+ peripheral pulses with trace evidence of peripheral edema and no calf tenderness noted. NEUROLOGIC patient is awake, alert and oriented A and OX3. - Labs CBC & Chem 7: 07/19/18 05:31 07/19/18 05:31 Labs: Abnormal Lab Results - Last 24 Hours (Table) 07/18/18 07/18/18 07/18/18 Range/Units 05:47 17:25 20:52 WBC (3.8-10.6) k/uL Hgb (13.0-17.5) gm/dL MCHC (31.0-37.0) g/dL Neutrophils # (1.3-7.7) k/uL Lymphocytes # (1.0-4.8) k/uL Sodium (137-145) mmol/L Potassium (3.5-5.1) mmol/L BUN (9-20) mg/dL Glucose (74-99) mg/dL POC Glucose (mg/dL) 246 H 331 H (75-99) mg/dL Hemoglobin A1c 8.8 H (4.0-6.0) % Magnesium (1.6-2.3) mg/dL 07/19/18 07/19/18 07/19/18 Range/Units 05:31 05:31 06:13 WBC 15.0 H (3.8-10.6) k/uL Hgb 12.7 L (13.0-17.5) gm/dL MCHC 30.7 L (31.0-37.0) g/dL Neutrophils # 13.4 H (1.3-7.7) k/uL Lymphocytes # 0.9 L (1.0-4.8) k/uL Sodium 135 L (137-145) mmol/L Potassium 5.4 H (3.5-5.1) mmol/L BUN 23 H (9-20) mg/dL Glucose 300 H (74-99) mg/dL POC Glucose (mg/dL) 268 H (75-99) mg/dL Hemoglobin A1c (4.0-6.0) % Magnesium 2.4 H (1.6-2.3) mg/dL 07/19/18 Range/Units 12:10 WBC (3.8-10.6) k/uL Hgb (13.0-17.5) gm/dL MCHC (31.0-37.0) g/dL Neutrophils # (1.3-7.7) k/uL Lymphocytes # (1.0-4.8) k/uL Sodium (137-145) mmol/L Potassium (3.5-5.1) mmol/L BUN (9-20) mg/dL Glucose (74-99) mg/dL POC Glucose (mg/dL) 289 H (75-99) mg/dL Hemoglobin A1c (4.0-6.0) % Magnesium (1.6-2.3) mg/dL Microbiology - Last 24 Hours (Table) 07/17/18 21:52 Blood Culture - Preliminary Blood No Growth after 24 hours Assessment and Plan Plan: #1 acute hypoxic respiratory failure secondary to pulmonary fibrosis. #2 diabetes, for 20 years #3 hyperlipidemia #4 prior history of smoking Plan continue recommendations per pulmonary medicine Plan for follow-up in 6-[address] Capps in the office for repeat echocardiogram. Nurse Practitioner note has been reviewed, I agree with a documented findings and plan of care. Patient was seen and examined.
[2018-07-19 16:53] LABS: Glucose,Whole Blood 312 mg/dL (75-99)
[2018-07-19 21:43] LABS: Glucose,Whole Blood 291 mg/dL (75-99)
[2018-07-19] MEDS: ATORVASTATIN 20 MG TAB PO SCH (21:50)
[2018-07-20] MEDS: IPRATROPIUM-ALBUTEROL 3 ML NEB INHALATION SCH ×3 (03:57→11:10)
[2018-07-20 05:23] VITALS: RESP 19
[2018-07-20 05:54] LABS: Glucose,Whole Blood 129 mg/dL (75-99)
[2018-07-20] MEDS: INSULIN ASPART 100 UNIT/ML 1 ML 10 ML VIAL SQ SCH (06:15)
[2018-07-20 07:22] LABS: HCT 45.1 % (39.0-53.0); HGB 14.1 gm/dL (13.0-17.5); Hypochromasia Moderate; MCH 29.4 pg (25.0-35.0); MCHC 31.3 g/dL (31.0-37.0); MCV 93.9 fL (80.0-100.0); Mean Platelet Volume 6.9; Platelet Count 292 k/uL (150-450); RDW 14.4 % (11.5-15.5); WBC 17.6 k/uL (3.8-10.6)
[2018-07-20 07:52] LABS: Anion Gap 8 mmol/L; Blood Urea Nitrogen 21 mg/dL (9-20); Carbon Dioxide 22 mmol/L (22-30); Chloride 107 mmol/L (98-107); Glucose 136 mg/dL (74-99); Sodium 137 mmol/L (137-145)
[2018-07-20 07:53] LABS: Potassium 4.9 mmol/L (3.5-5.1)
[2018-07-20] MEDS ORDERED: INSULIN DETEMIR 100 UNIT/ML 10 ML VIAL SQ SCH (09:00)
[2018-07-20] MEDS: GABAPENTIN 300 MG CAP PO SCH (09:43)
[2018-07-20] MEDS: ASPIRIN 81 MG PO SCH (09:43)
[2018-07-20] MEDS: predniSONE 20 MG TAB PO SCH (09:43)
[2018-07-20 09:54] VITALS: BP 135/68; PULSE 74; TEMP 97.8
--- NOTE | 2018-07-20 10:10 | P.DS ---
Providers Date of admission: 07/18/18 01:13 Attending physician: Moni Pizarro Consults: 07/18/18 01:10 Consult Physician Routine Consulting Provider: Ilia Yan Consult Reason/Comments: elevated trop Do you want consulting provider notified?: Yes Consult Physician Routine Consulting Provider: Sachi Lockwood Consult Reason/Comments: pulmonary fibrosis, hypoxia Do you want consulting provider notified?: Yes Primary care physician: Harjeet [facility] Course: 63-year-old gentleman was admitted secondary to acute hypoxic respiratory failure from possible pulmonary fibrosis patient is undergoing further workup for pulmonary fibrosis echocardiogram showed moderate pulmonary hypertension. Patient is undergoing artery workup for pulmonary fibrosis. Patient's oxygen requirements has come down from my 8 L to 2 L today but still short of breath with minimal ambulation. Patient is on high-dose steroids leading to hyperkalemia which will treat with Kayexalate, blood sugars are significantly elevated secondary to systemic steroids to my increase the dose of long-acting insulin along with the continuation of pre-meal insulin and sliding scale. 07/20/2018 Patient has significant clinical improvement rheumatoid factor was negative discussed with pulmonology patient will be discharged on 60 mg of prednisone follow with pulmonology Dr. Mireles. He closely as an outpatient. Patient although will require oxygen as he is desaturating upon ambulation will require around 2- 3 L. PHYSICAL EXAMINATION: GENERAL: The patient is alert and oriented x3, not in any acute distress. Well developed, well nourished. HEENT: Pupils are round and equally reacting to light. EOMI. No scleral icterus. No conjunctival pallor. Normocephalic, atraumatic. No pharyngeal erythema. No thyromegaly. CARDIOVASCULAR: S1 and S2 present. No murmurs, rubs, or gallops. PULMONARY: Good air entry there are fine crackles on exam ABDOMEN: Soft, nontender, nondistended, normoactive bowel sounds. No palpable organomegaly. MUSCULOSKELETAL: No joint swelling or deformity. EXTREMITIES: No cyanosis, clubbing, or pedal edema. NEUROLOGICAL: Gross neurological examination did not reveal any focal deficits. SKIN: No rashes. Assessment and Plan Plan: -Acute hypoxic respiratory failure probably secondary to pulmonary fibrosis with a competent of mild COPD which was never diagnosed patient is being discharged on oral steroids -Mildly elevated troponin secondary to hypoxemia type II non-ST elevation myocardial infarction etiology echocardiac showed moderate pulmonary hypertension no wall motion abnormalities no further intervention from cardiac perspective -Type 2 diabetes mellitus patient's blood sugars are elevated because of the systemic steroids increasing the dose of Lantus little bit -Hyperlipidemia -Sleep apnea and uses CPAP machine -Possible mild COPD with mild acute exacerbation Patient Condition at Discharge: Fair Plan - Discharge Summary Discharge Rx Participant: No New Discharge Prescriptions: New Albuterol Inhaler [Ventolin Hfa Inhaler] 1 - 2 puff INHALATION RT-Q6H PRN #1 inhaler PRN Reason: Shortness Of Breath predniSONE 60 mg PO DAILY #14 tab Ranitidine HCl [Zantac] 150 mg PO BID #30 tab Continue Gabapentin 600 mg PO DAILY Topanga-3 Fatty Acids/Fish Oil [Fish Oil 1,000 mg Softgel] 1 cap PO DAILY Changed Insulin Glargine [Lantus] 50 unit SQ QAM #0 No Action Insulin Aspart [NovoLOG Flexpen] 0 units SQ AC-TID Atorvastatin [Lipitor] 20 mg PO HS Aspirin [Adult Low Dose Aspirin EC] 81 mg PO DAILY Ascorbic Acid [Vitamin C] 1,000 mg PO DAILY Multivitamins, Thera [Multivitamin (formulary)] 1 tab PO DAILY Discharge Medication List Ascorbic Acid [Vitamin C] 1,000 mg PO DAILY 06/06/17 [History] Aspirin [Adult Low Dose Aspirin EC] 81 mg PO DAILY 06/06/17 [History] Atorvastatin [Lipitor] 20 mg PO HS 06/06/17 [History] Insulin Aspart [NovoLOG Flexpen] 0 units SQ AC-TID 06/06/17 [History] Multivitamins, Thera [Multivitamin (formulary)] 1 tab PO DAILY 06/06/17 [History ] Gabapentin 600 mg PO DAILY 07/17/18 [History] Topanga-3 Fatty Acids/Fish Oil [Fish Oil 1,000 mg Softgel] 1 cap PO DAILY [History] Albuterol Inhaler [Ventolin Hfa Inhaler] 1 - 2 puff INHALATION RT-Q6H PRN #1 inhaler 07/20/18 [Rx] Insulin Glargine [Lantus] 50 unit SQ QAM #0 07/20/18 [Rx] Ranitidine HCl [Zantac] 150 mg PO BID #30 tab 07/20/18 [Rx] predniSONE 60 mg PO DAILY #14 tab 07/20/18 [Rx] Follow up Appointment(s)/Referral(s): Harjeet Long DO [Primary Care Provider] - 1-2 days Nubia Capps MD [STAFF PHYSICIAN] - 6 Weeks (6-8 weeks) Discharge Disposition: HOME SELF-CARE
[2018-07-20 11:49] LABS: Glucose,Whole Blood 202 mg/dL (75-99)
--- NOTE | 2018-07-20 21:26 | PN ---
PROGRESS NOTE The patient was seen on 07/20/2018. He is less short of breath and discharge planning is in progress. PHYSICAL EXAMINATION: His respiratory rate is 19, pulse rate of 77, temperature 98.1, blood pressure 135/68. HEENT is unremarkable. Chest reveals scattered Velcro type crackles in the lower 2/3 of his lung. Cardiovascular system reveals an S1, S2. Abdomen is soft. There is no pedal edema. Labs reveal rheumatoid factor that is positive. SETH screen is negative. Allergy testing is pending. IMPRESSION: 1. Interstitial pneumonitis, most likely secondary to hypersensitivity pneumonitis versus other etiology. 2. Background lung fibrosis, which may be due to harrell's lung versus interstitial pulmonary fibrosis. 3. Diabetes mellitus. At this point in time, keep him on high-dose prednisone. I agree with possible discharge planning. Would taper the prednisone as an outpatient. Would check physiologically as an outpatient and decide on further workup. Depending on how he does we should make further changes to his care. MMODL / IJN: [id number] /
== END 2018-07-20 13:22 | disposition home or self-care (01) | DRG 196 ==
LOC: EC 21:04 → 3SCARD 07-18 01:13
PROVIDERS: ADMIT Hospitalist; ATTEND Hospitalist
DX: J84.10 Pulmonary fibrosis, unspecified (principal); J96.01 Acute respiratory failure with hypoxia; I21.A1 Myocardial infarction type 2; E11.65 Type 2 diabetes mellitus with hyperglycemia; J44.9 Chronic obstructive pulmonary disease, unspecified; E78.5 Hyperlipidemia, unspecified; G47.30 Sleep apnea, unspecified; E66.9 Obesity, unspecified; I08.1 Rheumatic disorders of both mitral and tricuspid valves; I27.20 Pulmonary hypertension, unspecified; E78.00 Pure hypercholesterolemia, unspecified; T38.0X5A Adverse effect of glucocorticoids and synthetic analogues, initial encounter; Z77.090 Contact with and (suspected) exposure to asbestos; Z86.14 Personal history of Methicillin resistant Staphylococcus aureus infection; Z79.82 Long term (current) use of aspirin; Z79.4 Long term (current) use of insulin; Z79.899 Other long term (current) drug therapy; Z82.49 Family history of ischemic heart disease and other diseases of the circulatory system; Z88.8 Allergy status to other drugs, medicaments and biological substances; Z68.33 Body mass index [BMI] 33.0-33.9, adult; Z87.891 Personal history of nicotine dependence
CPT/HCPCS: 36415; 71046; 71275; 80048; 80053; 82803; 83036; 83605; 83735; 83880; 84484; 85025; 85027; 85652; 86001; 86038; 86140; 86431; 86606; 86609; 87040; 93005; 93306; 94640; 94760; 96365; 96372; 96375; 99285

== ENCOUNTER → 2018-09-07 | Outpatient (CLI) | payer MEDICARE ==
--- NOTE | 2018-09-07 15:35 | CT ---
EXAMINATION TYPE: CT chest wo con DATE OF EXAM: 09/07/2018 COMPARISON: 07/17/2018 HISTORY: Follow-up to previous scan, pulmonayr fibrosis. Hx COPD, CHF CT DLP: 576.[address] of the chest was performed with lung and mediastinal window settings submitted. The la ck of contrast limits evaluation of the vascular, mediastinal and parenchymal structures including th e upper abdomen. LUNGS: There are advanced features of pulmonary fibrosis greatest at the lung bases and mid lung zone s. Other multiple pleural-based nodules and masses seen. Right lower lobe pleural-based mass measures 3 cm image 41. Additional pleural-based thickening/nodularity right lower lobe posteriorly measures 2 cm image 41 and 2.1 cm image 45. Additional areas of pleural-based nodularity right upper lobe post eriorly measures 1.3 cm image 17. Right lower lobe nodule measures 1.9 cm image 49. No left-sided nod ules appreciated. MEDIASTINUM/JADEN: Thoracic aorta is of normal caliber with limited evaluation given lack of contrast . The heart is enlarged. Coronary artery calcifications identified. Stable mediastinal adenopathy is nonspecific. Right paratracheal lymph node measures 2.2 cm in short axis. There appears to be hilar adenopathy as well. No lymph nodes greater than 1cm. UPPER ABDOMEN: No significant abnormality is seen. OTHER: No significant other abnormality. IMPRESSION: 1. Advanced features of pulmonary fibrosis. 2. Right-sided pleural-based nodularity as discussed above. Malignancy is not excluded. Consider PET/ CT for further evaluation. 2. Mediastinal adenopathy is stable as well suspected hilar adenopathy.
== END | disposition home or self-care (01) ==
LOC: RADCTMAIN 14:07
PROVIDERS: ATTEND Internal Medicine Pulmonary Disease
DX: J84.10 Pulmonary fibrosis, unspecified (principal); J94.8 Other specified pleural conditions; R59.0 Localized enlarged lymph nodes
CPT/HCPCS: 71250

== ENCOUNTER → 2018-09-12 | Outpatient (CLI) | payer MEDICARE | END | disposition home or self-care (01) | LOC: RADPETMAIN 11:56 | PROVIDERS: ATTEND Internal Medicine | DX: Z53.9 Procedure and treatment not carried out, unspecified reason (principal) ==

== ENCOUNTER → 2018-09-19 | Outpatient (CLI) | payer MEDICARE ==
--- NOTE | 2018-09-20 19:48 | PE ---
EXAMINATION TYPE: PET CT fusion skull to thigh DATE OF EXAM: 09/19/2018 COMPARISON: CT chest 09/07/2018 Prior PET/CT: None HISTORY: Solitary pulmonary nodule TECHNIQUE: Following the intravenous administration of mCi of F-18 FDG, whole body images are perfor med from the skull base to the midthigh. Images are reviewed on the computer in the coronal, axial, and sagittal planes. Reconstructed rotating images are created on independent workstation and review ed on the computer. A localization and attenuation correction CT is performed in conjunction with t he PET scan. DLP: 497.89 mGycm SCAN: Initial Blood glucose: 190 mg/dL Average Mediastinum SUV: 1.8 Average Liver SUV: 2.64 FINDINGS: NECK: No abnormal uptake. THORAX: There may be some subtle uptake posterior lateral to the trachea in the upper chest. 91. This has an SUV value 1.93 but may be related to the esophagus. There is increased uptake within the infiltrate within the posterior right lung apex. This measures 2 .2. PET image 97. There is an area of increased radiotracer accumulation in the as ago esophageal recess within the pos terior medial right lung nodule. This has an SUV value of 2.91 which is suspicious. Inflammatory easely ge could have this finding. There is an area of marked increased radiotracer accumulation within the lateral right lung nodule wi th SUV values 3.92 suspicious for neoplasm. Image 122 An additional focus of radiotracer is within th e posterior medial right lung base with an SUV value of 3.61 also suspicious for neoplasm. PET image 128. There is some uptake in the posterior right lung base. PET image 136. This has an SUV value of 3 .16 suspicious for neoplasm. ABDOMEN: No abnormal uptake. Liver appears heterogenous. Small metastasis may be difficult to delinea te in this background. PELVIS: No abnormal uptake OSSEOUS STRUCTURES: LOCALIZATION CT: Thyroid as visualized is normal. There is an enlarged lymph node in the pretracheal space. This has an SUV value 2.25. PET image 99. Additional prominent lymph node in the pretracheal s pace near the aortopulmonic window has an SUV value 1.86. PET image 100. Coronary artery calcificatio n is noted. Beam hardening artifact causes some limitation on the CT evaluation. Pancreas appears atr ophic. COMPARISON: Areas identified on the CT chest correspond to the abnormal areas of uptake within the PE T images. IMPRESSION: 1. Multiple areas of increased uptake within the right peripheral lung identified on CT as well as PE T scan are compatible with neoplasm. Multiplicity suggests metastasis. 2. No additional suspicious uptake to suggest primary or metastatic disease. 3. Enlarged lymphadenopathy as well as some areas of pneumonitis change within the right lung are int ermediate range and could be inflammatory in nature. Early metastatic disease however is not excluded .
== END | disposition home or self-care (01) ==
LOC: RADPETMAIN 07:24
PROVIDERS: ATTEND Internal Medicine
DX: R59.0 Localized enlarged lymph nodes (principal); J18.8 Other pneumonia, unspecified organism
CPT/HCPCS: 78815; A9552

== ENCOUNTER → 2018-10-07 | Outpatient (CLI) | payer MEDICARE ==
--- NOTE | 2018-10-07 13:29 | XR ---
EXAMINATION TYPE: XR chest 2V DATE OF EXAM: 10/07/2018 COMPARISON: Prior exams performed at [facility] on 10/06/2018 HISTORY: Recent lung biopsy. Pulmonary fibrosis. Known right small pneumothorax. TECHNIQUE: Frontal and lateral views of the chest are obtained. FINDINGS: There is a very trace right pneumothorax, as seen on the prior radiographs at the outside institution. This has decreased in size from the prior imaging at the outside institution. Extensive interstitial prominence/fibrosis is seen throughout the lungs, right lung greater than left. Cardiome diastinal silhouette is within normal limits. Mild degenerative changes of the spine are noted. No le ft-sided pneumothorax. IMPRESSION: Trace right pneumothorax is subtle in less than 5%. This is improved from the prior at [facility] outside institution of 10/06/2018. Extensive underlying pulmonary fibrosis is again noted.
== END | disposition home or self-care (01) ==
LOC: RADXRMAIN 12:40
PROVIDERS: ATTEND Internal Medicine
DX: J84.10 Pulmonary fibrosis, unspecified (principal); R22.2 Localized swelling, mass and lump, trunk
CPT/HCPCS: 71046

== ENCOUNTER 2018-11-08 10:56 | Inpatient (IN) | payer MEDICARE ==
--- NOTE | 2018-11-08 11:16 | ED ---
General Adult HPI - General Stated complaint: Sob Time Seen by Provider: 11/08/18 11:06 - History of Present Illness Initial comments: Dictation was produced using [id number] dictation software. please excuse any grammatical, word or spelling errors. Chief Complaint: 63-year-old male past medical history of pulmonary fibrosis, COPD, diabetes presents with worsening shortness of breath. History of Present Illness: 63-year-old male with extensive pulmonary history. Patient has a history of pulmonary fibrosis COPD. Patient states that every day he is been having progressive exertional shortness of breath. Patient also has a history of heart failure. Patient has been dealing with respiratory symptoms for several years now. 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 Salinas who is managing his symptoms on an outpatient basis. Today he was in the shower when he was trying to get ready for the day. He states his symptoms were so severe today prompting him to come to the emergency department. Denies any chest pain. The ROS documented in this emergency department record has been reviewed and confirmed by me. Those systems with pertinent positive or negative responses have been documented in the HPI. All other systems are other negative and/or noncontributory. PHYSICAL EXAM: General Impression: Alert and oriented x3, acute distress secondary to respiratory distress, pale HEENT: Normocephalic atraumatic, extra-ocular movements intact, pupils equal and reactive to light bilaterally, mucous membranes moist. Cardiovascular: Heart regular rate and rhythm, S1&S2 audible, no murmurs, rubs or gallops Chest: Bilateral lung crackles worse of the right Abdomen: Bowel sounds present, abdomen soft, non-tender, non-distended, no organomegaly Musculoskeletal: Pulses present and equal in all extremities, no peripheral moreno ma Motor: no focal deficits noted Neurological: CN II-XII grossly intact, no focal motor or sensory deficits noted Skin: Intact with no visualized rashes Psych: Normal affect and mood ED course: 63-year-old male presents with acute on chronic shortness of breath. Patient appeared to be in severe respiratory distress. Patient placed immediately on BiPAP with improvement of symptoms. Patient pallor had resolved. Patient also looks comfortable. Laboratory evaluation obtained. Mild leukocytosis of 12.3. Blood gases shows normal findings. Metabolic panel shows sodium 132, rest of metabolic panel is unremarkable. Chest x-ray is nonacute. Patient to be admitted for hypoxic respiratory failure. Given IV steroids, DuoNeb and antibiotics. - Related Data Home Medications Medication Instructions Recorded Confirmed Atorvastatin [Lipitor] 20 mg PO HS 06/06/17 11/08/18 Insulin Aspart [NovoLOG Flexpen] See Protocol SQ AC-TID 06/06/17 11/08/18 Multivitamins, Thera [Multivitamin 1 tab PO DAILY 06/06/17 11/08/18 (formulary)] [place]-3 Fatty Acids/Fish Oil [Fish 1 cap PO DAILY 07/17/18 11/08/18 Oil 1,000 mg Softgel] Previous Rx's Medication Instructions Recorded Insulin Glargine [Lantus] 50 unit SQ QAM #0 07/20/18 Allergies Allergy/AdvReac Type Severity Reaction Status Date / Time oritavancin Allergy rigors, Verified 11/08/18 11:23 chills Review of Systems ROS Statement: Those systems with pertinent positive or pertinent negative responses have been documented in the HPI. ROS Other: All systems not noted in ROS Statement are negative. Past Medical History Past Medical History: COPD, Diabetes Mellitus, Hyperlipidemia, Skin Disorder, Sleep Apnea/CPAP/BIPAP Additional Past Medical History / Comment(s): no cpap used, previous wound on rt heel, told you had COPD but never had formal testing History of Any Multi-Drug Resistant Organisms: MRSA Date of last positivie culture/infection: 06/18/17 MDRO Source:: HEEL Additional Past Surgical History / Comment(s): pilonidal cyst, colonoscopy 08-22-17 Past Anesthesia/Blood Transfusion Reactions: No Reported Reaction Smoking Status: Former smoker - Past Family History Mother Family Medical History: No Reported History Additional Family Medical History / Comment(s): congenital heart defects Brother(s) Family Medical History: Cancer Father Family Medical History: Hypertension Course Vital Signs 11/08/18 11/08/18 11/08/18 11:15 11:36 11:48 Temperature 100.7 F H Pulse Rate 117 H 106 H Respiratory 28 H 32 H 35 H Rate Blood Pressure 93/63 139/79 O2 Sat by Pulse 75 L 96 Oximetry Medical Decision Making - Lab Data Result diagrams: 11/08/18 11:33 11/08/18 11:33 Lab Results 04/14/19 04/14/19 04/14/19 Range/Units 11:33 11:33 11:33 WBC 12.3 H (3.8-10.6) k/uL RBC 4.88 (4.30-5.90) m/uL Hgb 13.7 (13.0-17.5) gm/dL Hct 43.2 (39.0-53.0) % MCV 88.5 (80.0-100.0) fL MCH 28.1 (25.0-35.0) pg MCHC 31.8 (31.0-37.0) g/dL RDW 15.0 (11.5-15.5) % Plt Count 259 (150-450) k/uL Neutrophils % 82 % Lymphocytes % 9 % Monocytes % 5 % Eosinophils % 1 % Basophils % 0 % Neutrophils # 10.0 H (1.3-7.7) k/uL Lymphocytes # 1.1 (1.0-4.8) k/uL Monocytes # 0.7 (0-1.0) k/uL Eosinophils # 0.1 (0-0.7) k/uL Basophils # 0.1 (0-0.2) k/uL VBG pH 7.41 (7.31-7.41) VBG pCO2 43 (37-51) mmHg VBG HCO3 26 (24-28) mmol/L Sodium 132 L (137-145) mmol/L Potassium 4.8 (3.5-5.1) mmol/L Chloride 97 L (98-107) mmol/L Carbon Dioxide 25 (22-30) mmol/L Anion Gap 10 mmol/L BUN 14 (9-20) mg/dL Creatinine 0.54 L (0.66-1.25) mg/dL Est GFR (CKD-EPI)AfAm >90 (>60 ml/min/1.73 sqM) Est GFR (CKD-EPI)NonAf >90 (>60 ml/min/1.73 sqM) Glucose 331 H (74-99) mg/dL Plasma Lactic Acid Fred (0.7-2.0) mmol/L Calcium 10.2 (8.4-10.2) mg/dL Magnesium 1.9 (1.6-2.3) mg/dL Total Bilirubin 1.2 (0.2-1.3) mg/dL AST 26 (17-59) U/L ALT 28 (21-72) U/L Alkaline Phosphatase 91 (38-126) U/L Troponin I (0.000-0.034) ng/mL NT-Pro-B Natriuret Pep pg/mL Total Protein 7.1 (6.3-8.2) g/dL Albumin 3.7 (3.5-5.0) g/dL 11/08/18 11/08/18 11/08/18 Range/Units 11:33 11:33 11:33 WBC (3.8-10.6) k/uL RBC (4.30-5.90) m/uL Hgb (13.0-17.5) gm/dL Hct (39.0-53.0) % MCV (80.0-100.0) fL MCH (25.0-35.0) pg MCHC (31.0-37.0) g/dL RDW (11.5-15.5) % Plt Count (150-450) k/uL Neutrophils % % Lymphocytes % % Monocytes % % Eosinophils % % Basophils % % Neutrophils # (1.3-7.7) k/uL Lymphocytes # (1.0-4.8) k/uL Monocytes # (0-1.0) k/uL Eosinophils # (0-0.7) k/uL Basophils # (0-0.2) k/uL VBG pH (7.31-7.41) VBG pCO2 (37-51) mmHg VBG HCO3 (24-28) mmol/L Sodium (137-145) mmol/L Potassium (3.5-5.1) mmol/L Chloride (98-107) mmol/L Carbon Dioxide (22-30) mmol/L Anion Gap mmol/L BUN (9-20) mg/dL Creatinine (0.66-1.25) mg/dL Est GFR (CKD-EPI)AfAm (>60 ml/min/1.73 sqM) Est GFR (CKD-EPI)NonAf (>60 ml/min/1.73 sqM) Glucose (74-99) mg/dL Plasma Lactic Acid Fred 1.6 (0.7-2.0) mmol/L Calcium (8.4-10.2) mg/dL Magnesium (1.6-2.3) mg/dL Total Bilirubin (0.2-1.3) mg/dL AST (17-59) U/L ALT (21-72) U/L Alkaline Phosphatase (38-126) U/L Troponin I <0.012 (0.000-0.034) ng/mL NT-Pro-B Natriuret Pep 163 pg/mL Total Protein (6.3-8.2) g/dL Albumin (3.5-5.0) g/dL Disposition Clinical Impression: Acute respiratory failure with hypoxia Disposition: ADMITTED IP TO THIS HOSP Condition: Fair Referrals: Harjeet Long DO [Primary Care Provider] - 1-2 days Decision Time: 12:49
[2018-11-08 11:50] LABS: VBG PH 7.41 (7.31-7.41)
[2018-11-08 11:51] LABS: Basophils # (A) 0.1 k/uL (0-0.2); Basophils % (A) 0 %; Eosinophils # (A) 0.1 k/uL (0-0.7); Eosinophils % (A) 1 %; HCT 43.2 % (39.0-53.0); HGB 13.7 gm/dL (13.0-17.5); Lymphocytes # (A) 1.1 k/uL (1.0-4.8); Lymphocytes % (A) 9 %; MCH 28.1 pg (25.0-35.0); MCHC 31.8 g/dL (31.0-37.0); MCV 88.5 fL (80.0-100.0); Mean Platelet Volume 6.7; Monocytes # (A) 0.7 k/uL (0-1.0); Monocytes % (A) 5 %; Neutrophils % (A) 82 %; Platelet Count 259 k/uL (150-450); RBC 4.88 m/uL (4.30-5.90); WBC 12.3 k/uL (3.8-10.6)
[2018-11-08 12:00] LABS: ALT 28 U/L (21-72); AST 26 U/L (17-59); Albumin 3.7 g/dL (3.5-5.0); Alkaline Phosphatase 91 U/L (38-126); Anion Gap 10 mmol/L; Blood Urea Nitrogen 14 mg/dL (9-20); Calcium 10.2 mg/dL (8.4-10.2); Carbon Dioxide 25 mmol/L (22-30); Chloride 97 mmol/L (98-107); Glucose 331 mg/dL (74-99); Magnesium 1.9 mg/dL (1.6-2.3); Potassium 4.8 mmol/L (3.5-5.1); Sodium 132 mmol/L (137-145); Total Bilirubin 1.2 mg/dL (0.2-1.3); Total Protein 7.1 g/dL (6.3-8.2)
--- NOTE | 2018-11-08 12:35 | XR ---
EXAMINATION TYPE: XR chest 1V portable DATE OF EXAM: 11/08/2018 HISTORY: Interstitial fibrosis. REFERENCE: Previous study dated 10/07/2018. FINDINGS: Heart size upper limits of normal. There is coarse interstitial fibrosis present. The patie nt's right-sided pneumothorax appears to have resolved. Pleural spaces are clear. IMPRESSION: 1. BORDERLINE CARDIOMEGALY. 2. COARSE INTERSTITIAL FIBROSIS.
[2018-11-08] MEDS ORDERED: IPRATROPIUM-ALBUTEROL 3 ML NEB INHALATION STA (12:39)
[2018-11-08] MEDS ORDERED: DEXAMETHASONE SOD PHOSPHATE 10 MG/ML 1 ML VIAL IV STA (12:47)
[2018-11-08] MEDS ORDERED: AZITHROMYCIN 500 MG in SODIUM CHLORIDE 0.9% 250 ML IVPB STA (12:48)
[2018-11-08] MEDS ORDERED: methylPREDNISolone SOD SUCCI 125 MG/2 ML VIAL IV STA (12:49)
[2018-11-08] MEDS ORDERED: ASPIRIN 81 MG PO STA (13:33)
[2018-11-08] MEDS: LORazepam 2 MG/ML INJ IV SCH ×3 (13:47→22:45)
[2018-11-08 14:29] LABS: Glucose,Whole Blood 282 mg/dL (75-99)
[2018-11-08] MEDS: SODIUM CHLORIDE 0.9% 1,000 ML IV SCH (14:36)
[2018-11-08 15:08] VITALS: BMI 33.0
[2018-11-08] MEDS: IPRATROPIUM-ALBUTEROL 3 ML NEB INHALATION SCH ×2 (15:57→20:26)
[2018-11-08] MEDS ORDERED: IPRATROPIUM-ALBUTEROL 3 ML NEB INHALATION PRN (16:34)
[2018-11-08] MEDS ORDERED: HYDROcodone/APAP 5-325MG 1 EACH TAB PO PRN (16:37)
[2018-11-08] MEDS ORDERED: ALPRAZolam 0.25 MG TAB PO PRN (16:37)
[2018-11-08] MEDS ORDERED: ACETAMINOPHEN TAB 500 MG TAB PO PRN (16:37)
[2018-11-08 17:05] LABS: Glucose,Whole Blood 317 mg/dL (75-99)
[2018-11-08] MEDS: INSULIN ASPART (NovoLOG) 100 UNIT/ML VIAL SQ SCH ×2 (17:09→21:49)
[2018-11-08] MEDS: PIPERACILLIN-TAZOBACTAM 3.375 GM in SODIUM CHLORIDE 0.9% 100 ML IVPB SCH (17:09)
[2018-11-08] MEDS: methylPREDNISolone SOD SUCCI 125 MG/2 ML VIAL IV SCH (17:12)
--- NOTE | 2018-11-08 17:34 | HP ---
HISTORY AND PHYSICAL I am covering for Dr. Long. DATE OF SERVICE: 11/08/2018 CHIEF COMPLAINT: Shortness of breath, cough. HISTORY OF PRESENT ILLNESS: This 63-year-old gentleman with a past medical history of COPD, diabetes, hyperlipidemia, sleep apnea, history of MRSA, history of pilonidal cyst, being followed by Dr. Long in the outpatient setting, had a respiratory infection in July. According to the family, the patient did not feel better afterwards and the patient had multiple problems such as shortness of breath, cough and sputum and currently the patient is even unable to even walk a few feet and because of increasing difficulty, the patient came to [facility] and admitted for further evaluation and treatment. On admission, the patient was found to have also bilateral chest x- ray lesions and possibility of pneumonia is being suggested as well. The patient also has history of heart failure also. The patient was seen by pulmonology also in the outpatient setting. The patient was found to have pulse ox of 75 percent on nasal cannula. The patient responded to BiPAP. Patient being closely monitored. Patient admitted to ICU at this time. Patient had rigors and chills. No history of headache, loss of consciousness or seizures. Patient had fever on admission, tachypnea as well. PAST MEDICAL HISTORY: History of diabetes, hyperlipidemia, history of COPD, CHF, history of MRSA, history of pilonidal cyst. MEDICATIONS: Prior to admission: 1. [place]-3 fatty acids 1 p.o. daily. 2. Multivitamins one p.o. daily. 3. Lantus 50 units subcu q.a.m. 4. NovoLog a.c. t.i.d. 5. Lipitor 20 mg each. ALLERGIES: ORITAVANCIN. FAMILY HISTORY: History of congenital heart defects in the family. SOCIAL HISTORY: Previous history of smoking. No history of current smoking. No alcohol intake. REVIEW OF SYSTEMS: Could not be taken because the patient is on BiPAP at this time. PHYSICAL EXAMINATION: Physical exam revealed patient is alert. Extremely short of breath. Pulse is 106. Blood pressure 130/79, respiration 32, temperature 100.7, pulse ox 96% on BiPAP. BiPAP settings are noted. HEENT: Conjunctivae normal. NECK: No jugular venous distention. Cardiovascular System: S1, S2 muffled. RESPIRATION: Breath sounds diminished in bases. Bilateral scattered rhonchi and crackles. Expiratory wheezing heard. Respiratory efforts are markedly increased. Otherwise basilar crackles also heard. pulmonary fibrosis crackles. ABDOMEN: Soft, obese, nontender. No mass palpable. LEGS: No edema. No swelling. NERVOUS SYSTEM: Higher functions as mentioned earlier. Moves all 4 limbs. No focal motor or sensory deficits. Lymphatics: No lymph nodes palpable in the neck, axillae or groin. Skin: No ulcer, no rashes. No bleeding. JOINTS: No active deforming arthropathy. LAB STUDIES: WBC 12.2, hemoglobin 13.2, sodium 132, potassium 4.8, glucose 331. ASSESSMENT: 1. Chronic obstructive pulmonary disease, pulmonary fibrosis acute exacerbation with acute purulent tracheobronchitis with possible early pneumonia with failure of outpatient treatment. 2. Increased WBC. 3. Acute hypoxic respiratory failure secondary to above. 4. Hyponatremia. 5. Diabetes type 2, uncontrolled with hyperglycemia. 6. History of chronic obstructive pulmonary disease. 7. History of diabetes type 2. 8. Hyperlipidemia. 9. History of sleep apnea. 10.History of MRSA. 11.History of pilonidal cyst. 12.History of nicotine dependence. 13.Obesity with body mass of 32.1. RECOMMENDATIONS AND DISCUSSION: In this 63-year-old gentleman who presented with multiple complex medical issues, we will monitor the patient closely, continue the current medications, management and symptomatic treatment. Recommend broad-spectrum IV antibiotics and I would also recommend sputum and blood cultures and Infectious Disease and Pulmonary consultations, steroids. Monitor blood sugars closely. The blood sugars are going more than 300, and I would recommend insulin drip to control blood sugars better. DVT prophylaxis. Symptomatic treatment. Resume the home medications and also discussed the case at length with the patient's family and the staff at the bedside. Prognosis guarded as mentioned earlier and Dr. Long will follow. MMODL / IJN: [id number] / MTDD
[2018-11-08] MEDS: LINEZOLID 600 MG in DEXTROSE/WATER 1 300ML.BAG IVPB SCH (18:43)
[2018-11-08] MEDS: ATORVASTATIN 20 MG TAB PO SCH (20:00)
[2018-11-08] MEDS: HEPARIN SODIUM,PORCINE 5,000 UNIT/ML 1 ML VIAL SQ SCH (20:00)
[2018-11-08] MEDS: FORMOTEROL FUMARATE 20 MCG/2 ML NEBU INHALATION SCH (20:26)
[2018-11-08] MEDS: BUDESONIDE 1 MG/2 ML NEBU INHALATION SCH ×2 (20:26→20:33)
[2018-11-08 21:24] LABS: Glucose,Whole Blood 450 mg/dL (75-99)
[2018-11-08] MEDS ORDERED: INSULIN DETEMIR (LEVEMIR) 100 UNIT/ML SYR SQ ONE (21:45)
--- NOTE | 2018-11-08 22:58 | CONS ---
CONSULTATION Wyatt Hernandez is a 63-year-old male who presented to the ED at [facility] with increasing shortness of breath of about 1-1/2 to 2 weeks duration. He was seen in the ED, was found to be hypoxic and was admitted for further evaluation. He has a known history of lung fibrosis. The etiology which is unclear, which was diagnosed in June of 2018. He has subsequently been on tapering doses of steroids for approximately 6 weeks and has been off steroids for a few days and previously was on 10 to 20 mg for the previous 2 weeks. He has not been started on and was to be evaluated by transplant. However, he apparently has decided not to go with transplant evaluation for his family. PAST MEDICAL HISTORY: Positive for lung fibrosis, diabetes mellitus, obstructive sleep apnea. Previous MRSA wound of his right heel, pilonidal cyst, colonoscopy. FAMILY HISTORY: Positive for congenital heart defect in his mother, cancer in his brother, hypertension in his father. MEDICATIONS: Prior to admission were omega-3 fatty acids, multivitamin, Lantus, NovoLog, Lipitor. REVIEW OF SYSTEMS: Noncontributory other to what is described in history of present illness and past medical history. PHYSICAL EXAMINATION: Blood pressure is 126/86, respiratory rate of 14, pulse rate 92, O2 saturation on BiPAP 40% FiO2 was 95%. HEENT reveals BiPAP mask in place. No jugular venous distention. He has a short thick neck. Chest reveals bilateral decreased breath sounds with Velcro type crackles in the bases. Diminished breath sounds in the mid zone. Cardiovascular system was S1, S2. No S3, no S4. Abdomen is soft. There is trace pedal edema. LABS: Reveal a white count of 12.3, hemoglobin 13.7, neutrophils of 10,000. Sodium 132, potassium 4.8, chloride 97, bicarb 25, BUN 14, creatinine 0.54. Influenza A and B are negative. Chest x-ray showed evidence of coarse interstitial changes. IMPRESSION: At this time is: 1. Acute on chronic respiratory failure secondary to pulmonary fibrosis, etiology which is unclear. This may be due to past pneumoconiosis as he had been exposed to asbestos versus autoimmune or hypersensitivity pneumonitis. The patient had previously been positive for hypersensitivity pneumonitis panel and had a rheumatoid factor of 14 international units per mL, which is borderline normal. At this point in time, would keep the patient on high-dose IV steroids. Have ID further evaluate the patient to make sure we are not dealing with secondary bacterial infection. Keep him on inhaled steroids, leukotriene receptor antagonists. Depending on how he does, we should make further changes to his care. When he is stable we will check the CT scan of the chest without contrast to further evaluate his parenchyma. I would like to thank you for allowing me the privilege of participating in his care. MMULIL / ARAMN: [id number] /
--- NOTE | 2018-11-08 23:27 | P.CONS ---
History of Present Illness - Reason for Consult Consult date: 11/08/18 Pneumonia Requesting physician: Moni Pizaror - Chief Complaint Increased shortness of breath - History of Present Illness Patient is 63-year-old male with a past medical history significant for pulmonary fibrosis diagnosed back in June 2018 etiology unclear patient has been treated with a steroids that has been tapered off, patient presenting to the ER today with increasing shortness of breath the patient said he wasn't sure hours to get ready for the day and his breathing got so worse that he decided to come to the ER for further evaluation of the same shortness of breath both on exertion and no urinary tract rest patient also have a cough and mild to moderate intensity with minimal sputum production not sure about the color of the sputum denies having any chest pain no URI symptoms no nausea no vomiting and no abdominal pain or any diarrhea, with these symptoms and the patient was evaluated by the physician on arrival to the ER the patient did have low-grade fever 100.7 the patient did have elevated white count of 12,000 he was hypoxic with O2 sats of 75% on arrival to the patient did have a chest x-ray with cardiomegaly and increasing coarse interstitial infiltrate, patient initially received Rocephin and Zithromax antibiotic subsequently switched over to Zyvox and Zosyn and infectious disease was consulted for further recommendation regarding antibiotic therapy Review of Systems Review of system Constitutional: The patient with low-grade fever and denies chills, the patient does complain of weakness. Eyes: No complaint ENT: No complaint Respiratory: As per history of present illness Cardiovascular: No complaint Gastrointestinal: No complaint Genitourinary: No complaint Musculoskeletal: No complaint Integumentary: No complaint Endocrine : No complaint Psycologial : No complaint Neurological: No complaint. Past Medical History Past Medical History: COPD, Diabetes Mellitus, Hyperlipidemia, Skin Disorder, Sleep Apnea/CPAP/BIPAP Additional Past Medical History / Comment(s): no cpap used, previous wound on rt heel, told you had COPD but never had formal testing History of Any Multi-Drug Resistant Organisms: MRSA Year Discovered:: 06/18/17 MDRO Source:: HEEL Additional Past Surgical History / Comment(s): pilonidal cyst, colonoscopy 08-22-17 Past Anesthesia/Blood Transfusion Reactions: No Reported Reaction Past Psychological History: No Psychological Hx Reported Smoking Status: Former smoker Past Alcohol Use History: None Reported Additional Past Alcohol Use History / Comment(s): quit smoking 11 yrs ago, smoked for 40 yrs, 1 PPD Past Drug Use History: None Reported - Past Family History Mother Family Medical History: No Reported History Additional Family Medical History / Comment(s): congenital heart defects Brother(s) Family Medical History: Cancer Father Family Medical History: Hypertension Medications and Allergies Home Medications Medication Instructions Recorded Confirmed Type Atorvastatin [Lipitor] 20 mg PO HS 06/06/17 11/08/18 History Insulin Aspart [NovoLOG Flexpen] See Protocol SQ AC-TID 06/06/17 11/08/18 History Multivitamins, Thera [Multivitamin 1 tab PO DAILY 06/06/17 11/08/18 History (formulary)] [place]-3 Fatty Acids/Fish Oil [Fish 1 cap PO DAILY 07/17/18 11/08/18 History Oil 1,000 mg Softgel] Insulin Glargine [Lantus] 50 unit SQ QAM #0 07/20/18 11/08/18 Rx Allergies Allergy/AdvReac Type Severity Reaction Status Date / Time oritavancin Allergy rigors, Verified 11/08/18 11:23 chills Physical Exam Vitals: Vital Signs Temp Pulse Resp BP Pulse Ox 11/08/18 17:00 92 14 126/86 90 L 11/08/18 16:08 90 11/08/18 16:00 90 36 H 127/69 98 11/08/18 15:57 92 11/08/18 15:00 96 16 107/65 95 11/08/18 14:30 98.5 F 97 23 99/83 95 11/08/18 14:25 98.5 F 96 16 107/65 95 11/08/18 14:05 98 11/08/18 14:00 96 23 143/99 98 11/08/18 13:58 97 18 143/88 11/08/18 13:53 97 11/08/18 13:30 107 H 32 H 143/81 94 L 11/08/18 13:10 94 36 H 143/81 95 11/08/18 13:09 94 36 H 143/81 95 11/08/18 11:48 35 H 11/08/18 11:36 106 H 32 H 139/79 96 11/08/18 11:15 100.7 F H 117 H 28 H 93/63 75 L Intake and Output 11/08/18 11/08/18 11/08/18 06:59 14:59 22:59 Intake Total 270 120 Output Total 0 0 Balance 270 120 Intake: Intake, IV Titration 270 120 Amount Azithromycin 500 mg In 250 Sodium Chloride 0.9% 250 ml @ 250 mls/hr IVPB ONCE STA Rx#:[id number] Piperacillin-Tazobactam 3 100 .375 gm In Sodium Chloride 0.9% 100 ml @ 25 mls/hr IVPB Q8HR WOODY Rx# :[id number] Sodium Chloride 0.9% 1, 20 20 000 ml @ 20 mls/hr IV . Q24H WOODY Rx#:[id number] Output: Urine 0 0 Other: Weight 104.326 kg General: The patient is awake and alert, in no distress. Skin: no rashes and no masses palpable. Eye: Pupils are equal, round, there is normal conjunctiva bilaterally. Ears, nose, mouth and throat: There are moist mucous membranes and no oral lesions. Neck: The neck is supple, there is no thyromegaly. Cardiovascular: S1-S2 regular rate and rhythm. No murmur. Respiratory: Unlabored breathing decreased intensity of breath or no wheeze Gastrointestinal: Soft, non-distended, non-tender abdomen without masses or organomegaly noted. Neurological: There are no obvious motor or sensory deficits. Coordination appears grossly intact. Speech is normal. Psychiatric: Patient is awake and alert and oriented 3, appropriate mood & affect, normal judgment. Results CBC & Chem 7: 11/08/18 11:33 11/08/18 11:33 Labs: Abnormal Lab Results - Last 24 Hours (Table) 11/08/18 11/08/18 11/08/18 Range/Units 11:33 11:33 14:27 WBC 12.3 H (3.8-10.6) k/uL Neutrophils # 10.0 H (1.3-7.7) k/uL Sodium 132 L (137-145) mmol/L Chloride 97 L (98-107) mmol/L Creatinine 0.54 L (0.66-1.25) mg/dL Glucose 331 H (74-99) mg/dL POC Glucose (mg/dL) 282 H (75-99) mg/dL 11/08/18 Range/Units 17:02 WBC (3.8-10.6) k/uL Neutrophils # (1.3-7.7) k/uL Sodium (137-145) mmol/L Chloride (98-107) mmol/L Creatinine (0.66-1.25) mg/dL Glucose (74-99) mg/dL POC Glucose (mg/dL) 317 H (75-99) mg/dL Assessment and Plan Assessment: 1-patient presented to hospital with sepsis in this patient who did have fever of 100.7F elevated white count meeting criteria for sepsis source is likely pneumonia in this patient who did have increasing shortness of breath and cough with sputum production the patient did have underlying pulmonary fibrosis with low lung reserve and has been in and out of the hospital will need to cover for resistant gram-positive as well as gram-negative pathogen (1) Pneumonia Current Visit: Yes Status: Acute Code(s): J18.9 - PNEUMONIA, UNSPECIFIED ORGANISM SNOMED Code(s): 766300324 (2) Sepsis Current Visit: Yes Status: Acute Code(s): A41.9 - SEPSIS, UNSPECIFIED ORGANISM SNOMED Code(s): 06755493 Plan: 1-we will try to obtain sputum for Gram stain and culture sensitivity 2-patient will be treated with broad-spectrum antibiotic in the form of Zosyn and Zyvox 3-gentle IV fluid He will follow-up on clinical condition and cultures to further adjust medication if needed family was present at bedside questions were answered Time with Patient: Greater than 30
[2018-11-09] MEDS: PIPERACILLIN-TAZOBACTAM 3.375 GM in SODIUM CHLORIDE 0.9% 100 ML IVPB SCH ×4 (01:04→23:40)
[2018-11-09] MEDS: methylPREDNISolone SOD SUCCI 125 MG/2 ML VIAL IV SCH ×5 (01:05→23:32)
[2018-11-09 02:38] LABS: Glucose,Whole Blood 469 mg/dL (75-99)
[2018-11-09] MEDS ORDERED: INSULIN REGULAR BOLUS (FROM DRIP BAG) IV ONE (02:50)
[2018-11-09] MEDS: INSULIN REGULAR 100 UNIT in SODIUM CHLORIDE 0.9% 100 ML IV SCH ×4 (04:27→23:30)
[2018-11-09 04:35] LABS: Glucose,Whole Blood 462 mg/dL (75-99)
[2018-11-09 05:07] LABS: Glucose,Whole Blood 396 mg/dL (75-99)
[2018-11-09 05:31] LABS: Basophils % (A) 0 %; Eosinophils % (A) 0 %; HCT 41.4 % (39.0-53.0); HGB 13.3 gm/dL (13.0-17.5); Hypochromasia Slight; Lymphocytes # (A) 0.6 k/uL (1.0-4.8); Lymphocytes % (A) 7 %; MCH 28.6 pg (25.0-35.0); MCHC 32.1 g/dL (31.0-37.0); MCV 88.9 fL (80.0-100.0); Mean Platelet Volume 6.7; Monocytes # (A) 0.1 k/uL (0-1.0); Monocytes % (A) 2 %; Neutrophils # (A) 7.7 k/uL (1.3-7.7); Neutrophils % (A) 91 %; Platelet Count 253 k/uL (150-450); RBC 4.66 m/uL (4.30-5.90); RDW 14.8 % (11.5-15.5); WBC 8.5 k/uL (3.8-10.6)
[2018-11-09 05:39] LABS: Glucose,Whole Blood 352 mg/dL (75-99)
[2018-11-09 05:42] LABS: Anion Gap 11 mmol/L; Blood Urea Nitrogen 19 mg/dL (9-20); Calcium 10.3 mg/dL (8.4-10.2); Carbon Dioxide 24 mmol/L (22-30); Chloride 99 mmol/L (98-107); Glucose 398 mg/dL (74-99); Potassium 4.2 mmol/L (3.5-5.1); Sodium 134 mmol/L (137-145)
[2018-11-09] MEDS: LINEZOLID 600 MG in DEXTROSE/WATER 1 300ML.BAG IVPB SCH ×2 (06:02→17:15)
[2018-11-09 06:08] LABS: Glucose,Whole Blood 360 mg/dL (75-99)
[2018-11-09 06:35] LABS: Glucose,Whole Blood 393 mg/dL (75-99)
[2018-11-09 07:07] LABS: Glucose,Whole Blood 316 mg/dL (75-99)
[2018-11-09] MEDS: INSULIN ASPART (NovoLOG) 100 UNIT/ML VIAL SQ SCH ×3 (07:12→18:57)
[2018-11-09 07:37] LABS: Glucose,Whole Blood 327 mg/dL (75-99)
[2018-11-09] MEDS: FORMOTEROL FUMARATE 20 MCG/2 ML NEBU INHALATION SCH ×2 (07:50→20:15)
[2018-11-09] MEDS: BUDESONIDE 1 MG/2 ML NEBU INHALATION SCH ×2 (07:50→20:15)
[2018-11-09] MEDS: IPRATROPIUM-ALBUTEROL 3 ML NEB INHALATION SCH ×4 (07:51→20:15)
--- NOTE | 2018-11-09 07:53 | XR ---
EXAMINATION TYPE: XR chest 1V portable DATE OF EXAM: 11/09/2018 Comparison: 11/08/2018 Clinical History: 63-year-old male pulmonary fibrosis Findings: Heart normal size. Medium and coarse reticular densities predominantly in the mid and lower lungs per sists without significant interval change. Impression: Similar extensive changes of pulmonary fibrosis. Superimposed acute infiltrate would be difficult to exclude.
[2018-11-09] MEDS: LORazepam 2 MG/ML INJ IV SCH ×4 (08:08→21:29)
[2018-11-09] MEDS: HEPARIN SODIUM,PORCINE 5,000 UNIT/ML 1 ML VIAL SQ SCH ×2 (08:08→21:28)
[2018-11-09 08:17] LABS: Glucose,Whole Blood 316 mg/dL (75-99)
[2018-11-09 08:57] LABS: Glucose,Whole Blood 307 mg/dL (75-99)
[2018-11-09] MEDS ORDERED: FISH OIL 1000MG PO SCH (09:00)
[2018-11-09] MEDS ORDERED: MULTIVITAMINS, THERA 1 EACH TAB PO SCH (09:00)
[2018-11-09] MEDS ORDERED: AZITHROMYCIN 500 MG TAB PO SCH (09:00)
[2018-11-09] MEDS ORDERED: INSULIN DETEMIR (LEVEMIR) 100 UNIT/ML SYR SQ SCH (09:00)
--- NOTE | 2018-11-09 09:12 | CT ---
EXAMINATION TYPE: CT chest wo con DATE OF EXAM: 11/09/2018 COMPARISON: CT chest September 07, 2018 and July 17, 2018. PET/CT September 19, 2018. HISTORY: hypersensitivity pneumonitis CT DLP: 518.6 mGycm. Automated Exposure Control for Dose Reduction was Utilized. TECHNIQUE: CT scan of the thorax is performed without IV contrast. FINDINGS: LUNGS: There is persistent reticulation and fibrosis with honeycombing bilaterally most prominent in the lower lungs there is increasing nodularity in the right lung base laterally measuring 4.1 x 2.7 c m current study image 40 and posteriorly with several areas of nodularity identified, for reference n odule just above diaphragm measures 2.5 x 1.7 cm axial image 48 is increased in size from older studi es. There is trace right pleural fluid collection redemonstrated. Areas of groundglass opacity in the bilateral lungs centrally remain present with intralobar septal thickening no pneumothorax is seen b ilaterally. Tracheobronchial tree is patent. Increasing nodular consolidation posteriorly in the righ t midlung is present. MEDIASTINUM: Lack of IV contrast is noted to limit evaluation for mediastinal and especially hilar ad enopathy. Prominent thoracic lymph nodes are redemonstrated. For reference right pericarinal lymph node measures 1.8 x 1.1 cm not significantly changed from prior studies. Mild cardiomegaly is redemon strated. There is moderate to severe 3 vessel coronary artery calcification and/or stents, correlate clinically. No significant pericardial effusion is seen. Enlarged main pulmonary artery at 4.0 cm axi al image 27 is present, CT findings consistent with underlying pulmonary artery hypertension. OTHER: Some multilevel spurring in thoracic spine is again seen. IMPRESSION: As above, mild cardiomegaly with parenchymal changes favoring advanced fibrosis worse in the lower lungs redemonstrated. Underlying pulmonary artery hypertension present. Areas of acute infi ltrate and/or edema are difficult to exclude on background of advanced fibrotic changes. Increasing h ypermetabolic nodularity right lung is noted and underlying malignancy cannot be excluded.
--- NOTE | 2018-11-09 09:31 | PN ---
PROGRESS NOTE He was seen on 11/09/2018 He has remained hemodynamically stable. He is less short of breath and is doing significantly better. He is on nasal cannula oxygen at this time. He has been refusing Pulmicort because of the previous adverse reaction. On physical examination his respiratory rate is 22, pulse rate is 70, blood pressure 126/65, O2 SAT on 8 L by nasal cannula is 96%. HEENT is unremarkable. Chest reveals bilateral crackles. Cardiovascular system reveals an S1, S2. Abdomen is soft. There is trace pedal edema. LABS: Reviewed. IMPRESSION: 1. Hypersensitivity pneumonitis is likely as a cause of his lung fibrosis. However, the exact etiology is unclear. CT scan of the chest has been ordered. The official report is pending. Per my evaluation, he has some patchy infiltrates that seem somewhat acute in the background of chronic changes. There are lung nodular changes on the right side, which have been previously biopsied and were nondiagnostic and had resulted in a pneumothorax. 2. At this point in time, would continue high-dose steroids. He is not to be considered for CPR intubation. Would recommend consider transferring him out of the ICU. ID is to further evaluate the patient to decide if he requires antibiotics. His prognosis is guarded. He was counseled regarding his condition. MMODL / IJN: [id number] /
[2018-11-09] MEDS ORDERED: PANTOPRAZOLE 40 MG/10 ML VIAL IVP SCH (10:00)
--- NOTE | 2018-11-09 10:02 | P.PN ---
Subjective Progress Note Date: 11/09/18 This is a 63-year-old gentleman with a significant history for pulmonary fibrosis, etiology unclear, diagnosed in 2018 presented with increased shortness of breath, accompanied by cough with T-max of 100.7 on admission, elevated white count of 12 and O2 sat of 75%. Patient states his O2 requirements at home has been progressively gotten worse since June, from 2 L up to 7-1/2 L nasal cannula O2. He is waiting to hear from [facility] regarding lung transplant. Influenza ruled out. Evaluated by infectious disease, antibiotics adjusted and currently on Zyvox and Zosyn. Maintained on nebulized bronchodilators, IV steroids. Hyperglycemic, on insulin drip. Diet intake 100%. Denies nausea vomiting or diarrhea. Sputum sample collected this morning, results pending. Blood and Urine culture pending. Maintained on gentle IV fluid hydration. Currently afebrile, T-max 100.7. Maintaining mid 90s on 8 L nasal cannula. Telemetry sinus rhythm. 6 E. overflow. Review of systems: CONSTITUTIONAL: Positive fevers, denies chills, positive fatigue HEENT: No recent visual problems or hearing problems. Denied any sore throat. CARDIOVASCULAR: No chest pain, no palpitations, no syncope. PULMONARY: Positive shortness of breath, positive cough, minimal sputum production, no hemoptysis. GASTROINTESTINAL: No diarrhea, no nausea, no vomiting, no abdominal pain. Normoactive bowel sounds. NEUROLOGICAL: No headaches, no weakness, no numbness. Denies any new focal deficits HEMATOLOGICAL: Denies any bleeding or petechiae. GENITOURINARY: Denies any burning micturition, frequency, or urgency. MUSCULOSKELETAL/RHEUMATOLOGICAL: Denies any joint pain, swelling, or any muscle pain. ENDOCRINE: Denies any polyuria or polydipsia. PSYCHIATRIC: No anxiety, no depression The rest of the 14 point review of systems is negative Active Medications Acetaminophen (Tylenol Tab) 500 mg PO Q6HR PRN PRN Reason: Fever and/ or Pain Hydrocodone Bitart/Acetaminophen ([place] 5-325) 1 each PO Q6HR PRN PRN Reason: Pain Albuterol/Ipratropium (Duoneb 0.5 Mg-3 Mg/3 Ml Soln) 3 ml INHALATION RT-QID [facility] Last Admin: 11/09/18 07:51 Dose: 3 ml Documented by: Albuterol/Ipratropium (Duoneb 0.5 Mg-3 Mg/3 Ml Soln) 3 ml INHALATION RT-QID PRN PRN Reason: Shortness Of Breath Or Wheezing Alprazolam (Xanax) 0.25 mg PO TID PRN PRN Reason: Anxiety Atorvastatin Calcium (Lipitor) 20 mg PO HS [facility] Last Admin: 11/08/18 20:00 Dose: 20 mg Documented by: Azithromycin (Zithromax) 500 mg PO DAILY [facility] Last Admin: 11/09/18 08:08 Dose: 500 mg Documented by: Budesonide (Pulmicort) 1 mg INHALATION RT-BID [facility] Last Admin: 11/09/18 07:50 Dose: Not Given Documented by: Formoterol Fumarate (Perforomist) 20 mcg INHALATION RT-BID [facility] Last Admin: 11/09/18 07:50 Dose: 20 mcg Documented by: Heparin Sodium (Porcine) (Heparin) 5,000 unit SQ Q12HR [facility] Last Admin: 11/09/18 08:08 Dose: 5,000 unit Documented by: Sodium Chloride (Saline 0.9%) 1,000 mls @ 20 mls/hr IV .Q24H [facility] Last Admin: 11/08/18 14:36 Dose: 20 mls/hr Documented by: Linezolid 600 mg/ IV Solution 300 mls @ 150 mls/hr IVPB Q12H [facility]; Protocol Last Admin: 11/09/18 06:02 Dose: 150 mls/hr Documented by: Piperacillin Sod/Tazobactam (Sod 3.375 gm/ Sodium Chloride) 100 mls @ 25 mls/hr IVPB Q8HR [facility] Last Admin: 11/09/18 08:08 Dose: 25 mls/hr Documented by: Insulin Human Regular 100 unit (/ Sodium Chloride) 101 mls @ 0 mls/hr IV .Q0M [facility]; Protocol Last Titration: 11/09/18 07:09 Dose: 16.83 units/hr, 17 mls/hr Documented by: Insulin Aspart (Novolog) 14 unit 0.13 unit/kg (14 unit) SQ AC-TID [facility] Last Admin: 11/09/18 07:12 Dose: 14 unit Documented by: Lorazepam (Ativan) 0.5 mg IV QID [facility] Last Admin: 11/09/18 08:08 Dose: Not Given Documented by: Methylprednisolone Sodium Succinate (Solu-Medrol) 60 mg IV Q6HR [facility] Last Admin: 11/09/18 06:01 Dose: 60 mg Documented by: Multivitamins (Theragran) 1 each PO DAILY [facility] Last Admin: 11/09/18 08:08 Dose: 1 each Documented by: Fish Oil 1000mg 1 cap PO DAILY [facility] Last Admin: 11/09/18 08:09 Dose: Not Given Documented by: Objective - Vital Signs Vital signs: Vital Signs Temp 98.5 F 11/09/18 04:00 Pulse 70 11/09/18 06:00 Resp 22 11/09/18 06:00 BP 126/65 11/09/18 06:00 Pulse Ox 96 11/09/18 06:00 Intake & Output 11/08/18 11/09/18 11/09/18 18:59 06:59 18:59 Intake Total 1190 517.435 11.379 Output Total 650 1200 Balance 540 -682.565 11.379 Weight 104.326 kg 105.6 kg Intake: IV 100 Piperacillin-Tazobactam 3 100 .375 gm In Sodium Chloride 0.9% 100 ml @ 25 mls/hr IVPB Q8HR [facility] Rx# :[id number] Intake, IV Titration 690 117.435 11.379 Amount Azithromycin 500 mg In 250 Sodium Chloride 0.9% 250 ml @ 250 mls/hr IVPB ONCE [facility] Rx#:[id number] Insulin Regular 100 unit 57.435 11.379 In Sodium Chloride 0.9% 100 ml @ Titrate IV .Q0M [facility] Rx#:[id number] Linezolid 600 mg In 300 Dextrose/Water 1 300ml. bag @ 150 mls/hr IVPB Q12H [facility] Rx#:[id number] Piperacillin-Tazobactam 3 100 .375 gm In Sodium Chloride 0.9% 100 ml @ 25 mls/hr IVPB Q8HR [facility] Rx# :[id number] Sodium Chloride 0.9% 1, 40 60 000 ml @ 20 mls/hr IV . Q24H [facility] Rx#:[id number] Oral 500 300 Output: Urine 650 1200 - Exam PHYSICAL EXAM: VITAL SIGNS: As above GENERAL: Sitting up in bed, no acute distress HEENT: Conjunctivae normal. eyes normal. Oral mucosa moist NECK: No JVD. No thyroid enlargement. No LNs CARDIOVASCULAR: S1, S2 muffled. No murmur RESPIRATION: Respiratory effort increased, Breath sounds diminished in the bases with bibasilar crackles, greater on the right-pulmonary fibrosis crackles . No rhonchi, no wheezing. ABDOMEN: Soft, nontender . No guarding. no masses palpable. No ascites, No hepatosplenomegaly.Bowel sounds heard. LEGS: chronic minimal edema, right greater than left PSYCHIATRY: Alert and oriented -3, mood and affect normal. NERVOUS SYSTEM: Cranial N 2-12 grossly normal. Moves all 4 limbs. Diffuse weakness ,No focal deficits. Skin: no lesions, no rash Joints: No active swelling. No inflammation. - Labs CBC & Chem 7: 11/09/18 04:54 11/09/18 04:54 Labs: Abnormal Lab Results - Last 24 Hours (Table) 11/08/18 11/08/18 11/08/18 Range/Units 11:33 11:33 14:27 WBC 12.3 H (3.8-10.6) k/uL Neutrophils # 10.0 H (1.3-7.7) k/uL Lymphocytes # (1.0-4.8) k/uL Sodium 132 L (137-145) mmol/L Chloride 97 L (98-107) mmol/L Creatinine 0.54 L (0.66-1.25) mg/dL Glucose 331 H (74-99) mg/dL POC Glucose (mg/dL) 282 H (75-99) mg/dL Calcium (8.4-10.2) mg/dL 11/08/18 11/08/18 11/09/18 Range/Units 17:02 21:23 02:35 WBC (3.8-10.6) k/uL Neutrophils # (1.3-7.7) k/uL Lymphocytes # (1.0-4.8) k/uL Sodium (137-145) mmol/L Chloride (98-107) mmol/L Creatinine (0.66-1.25) mg/dL Glucose (74-99) mg/dL POC Glucose (mg/dL) 317 H 450 H 469 H (75-99) mg/dL Calcium (8.4-10.2) mg/dL 11/09/18 11/09/18 11/09/18 Range/Units 04:33 04:54 04:54 WBC (3.8-10.6) k/uL Neutrophils # (1.3-7.7) k/uL Lymphocytes # 0.6 L (1.0-4.8) k/uL Sodium 134 L (137-145) mmol/L Chloride (98-107) mmol/L Creatinine 0.61 L (0.66-1.25) mg/dL Glucose 398 H (74-99) mg/dL POC Glucose (mg/dL) 462 H (75-99) mg/dL Calcium 10.3 H (8.4-10.2) mg/dL 11/09/18 11/09/18 11/09/18 Range/Units 05:05 05:37 06:06 WBC (3.8-10.6) k/uL Neutrophils # (1.3-7.7) k/uL Lymphocytes # (1.0-4.8) k/uL Sodium (137-145) mmol/L Chloride (98-107) mmol/L Creatinine (0.66-1.25) mg/dL Glucose (74-99) mg/dL POC Glucose (mg/dL) 396 H 352 H 360 H (75-99) mg/dL Calcium (8.4-10.2) mg/dL 11/09/18 11/09/18 11/09/18 Range/Units 06:33 07:06 07:36 WBC (3.8-10.6) k/uL Neutrophils # (1.3-7.7) k/uL Lymphocytes # (1.0-4.8) k/uL Sodium (137-145) mmol/L Chloride (98-107) mmol/L Creatinine (0.66-1.25) mg/dL Glucose (74-99) mg/dL POC Glucose (mg/dL) 393 H 316 H 327 H (75-99) mg/dL Calcium (8.4-10.2) mg/dL Microbiology - Last 24 Hours (Table) 11/08/18 18:36 Urine Culture - Preliminary Urine,Voided Assessment and Plan Assessment: 1. Sepsis secondary to suspected pneumonia, in a patient with significant fibrosis, etiology unclear. Possible acute COPD exacerbation. Failed outpatient treatment 2. Acute hypoxic respiratory failure secondary to the above. 3. Diabetes mellitus II, uncontrolled -hyperglycemic, steroid-induced, 4. Mild hyponatremia improving 5. History of Sleep apnea 6. Hyperlipidemia 7. 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 Obesity, BMI 32.5 Plan: Continue on current medication regime ,monitoring and symptomatic treatment. Sputum and urine cultures pending. Chest CT pending. Blood, sputum, urine cultures pending , follow closely. Antibiotics as per ID. Gentle IV fluid hydration. Continue on nebulized bronchodilators, steroids. Maintain insulin drip with close monitoring of blood sugars . Protonix added for GI prophylaxis, heparin subcu in place for DVT prophylaxis. Further recommendations to follow. Patient is a 6 E. overflow, awaiting transfer out of ICU. Prognosis guarded given multiple complex medical issues. The impression and plan of care has been dictated as directed. : I performed a history and examination of this patient, discussed the same with the dictator. I agree with the dictator's note ,documented as a scribe. Any additional findings or plans will be noted.
[2018-11-09 10:14] LABS: Glucose,Whole Blood 339 mg/dL (75-99)
[2018-11-09 10:53] LABS: Glucose,Whole Blood 306 mg/dL (75-99)
[2018-11-09 11:43] LABS: Glucose,Whole Blood 270 mg/dL (75-99)
[2018-11-09 12:03] LABS: Glucose,Whole Blood 257 mg/dL (75-99)
[2018-11-09] MEDS: SODIUM CHLORIDE 0.9% 1,000 ML IV SCH (12:15)
[2018-11-09 12:43] LABS: Glucose,Whole Blood 254 mg/dL (75-99)
[2018-11-09 13:07] LABS: Glucose,Whole Blood 264 mg/dL (75-99)
[2018-11-09 13:32] LABS: Glucose,Whole Blood 291 mg/dL (75-99)
[2018-11-09 14:00] LABS: Glucose,Whole Blood 271 mg/dL (75-99)
--- NOTE | 2018-11-09 14:18 | P.PN ---
Progress Note - Text Progress Note Date: 11/09/18 Patient is well known to me and has progressively worsened quickly over the last 4 months. The patient would greatly benefit from surgical lung biopsy and evaluation by interstitial lung disease team. He is agreeable to proceed with this. I also discussed the case with HF transplant team, as he was being set up for transplant evaluation as an outpatient. They also agree that he would need surgical lung biopsy and once that was completed they will evaluate him further for transplant. The patient is agreeable to transfer to . I called HF transfer team and spoke with Dr. Crews in the MICU who is agreeable to transfer. Case management is aware as well.
[2018-11-09 14:36] LABS: Glucose,Whole Blood 322 mg/dL (75-99)
[2018-11-09 15:10] LABS: Glucose,Whole Blood 339 mg/dL (75-99)
[2018-11-09 15:22] LABS: Hemoglobin A1C 10.8 % (4.0-6.0)
[2018-11-09 15:34] LABS: Glucose,Whole Blood 284 mg/dL (75-99)
[2018-11-09 16:17] LABS: Glucose,Whole Blood 260 mg/dL (75-99)
[2018-11-09 16:41] LABS: Glucose,Whole Blood 250 mg/dL (75-99)
--- NOTE | 2018-11-09 16:52 | PN ---
PROGRESS NOTE DATE OF SERVICE: 11/09/2018 REASON FOR FOLLOWUP: Pneumonia. INTERVAL HISTORY: The patient's overall fever pattern has improved, with no temperature recorded in the last 24 hours. The patient is currently breathing slightly comfortably, still requiring high-flow oxygen. Denies having any chest pain. Cough is mild to moderate in intensity. The patient was unable to provide a sputum sample. No nausea, no vomiting, and no diarrhea. PHYSICAL EXAMINATION: Blood pressure is 126/67 with a pulse of 103, temperature 97. He is 93% on 8 L high- flow oxygen. General description is an elderly male lying in bed in no distress. RESPIRATORY SYSTEM: Unlabored breathing with decreased intensity of breath sounds. No wheeze. HEART: S1, S2. Regular rate and rhythm. ABDOMEN: Soft. No tenderness. LABS: Hemoglobin is 13.3, white count normalized to 8.5. BUN of 19, creatinine 0.61. DIAGNOSTIC IMPRESSION AND PLAN: Patient admitted to hospital with sepsis in this patient who did have a fever, elevated white count associated with underlying pulmonary fibrosis. Patient at this time is to continue with Zosyn and Zyvox while waiting for the culture to finalize. Continue supportive care. MMODL / IJN: [id number] /
[2018-11-09 17:09] LABS: Glucose,Whole Blood 227 mg/dL (75-99)
[2018-11-09 19:38] LABS: Glucose,Whole Blood 272 mg/dL (75-99)
[2018-11-09 21:18] LABS: Glucose,Whole Blood 244 mg/dL (75-99)
[2018-11-09] MEDS: ATORVASTATIN 20 MG TAB PO SCH (21:29)
[2018-11-09 23:19] VITALS: BP 121/72; PULSE 92; RESP 20; TEMP 97
[2018-11-09 23:30] LABS: Glucose,Whole Blood 267 mg/dL (75-99)
--- NOTE | 2018-11-10 16:23 | P.DS ---
Providers Date of admission: 11/08/18 12:49 Expected date of discharge: 11/09/18 Attending physician: Harjeet Long Consults: 11/08/18 12:49 Consult Physician Routine Consulting Provider: Sachi Lockwood Consult Reason/Comments: hypoxia Do you want consulting provider notified?: Yes 11/08/18 16:36 Consult Physician Routine Consulting Provider: Elizabeth Montenegro Consult Reason/Comments: pneumonia Do you want consulting provider notified?: Yes Primary care physician: Harjeet Long [facility] Course: Final Diagnoses: 1. Sepsis secondary to suspected pneumonia, in a patient with significant fibrosis, etiology unclear. Possible acute COPD exacerbation. Failed outpatient treatment 2. Acute hypoxic respiratory failure secondary to the above. 3. Diabetes mellitus II, uncontrolled -hyperglycemic, steroid-induced, 4. Mild hyponatremia improving 5. History of Sleep apnea 6. Hyperlipidemia 7. 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 Obesity, BMI 32.5 Hospital course:This is a 63-year-old gentleman with a significant history for pulmonary fibrosis, etiology unclear, diagnosed in 2018 presented with increased shortness of breath, accompanied by cough with T-max of 100.7 on admission, elevated white count of 12 and O2 sat of 75%. Patient states his O2 requirements at home has been progressively gotten worse since June, from 2 L up to 7-1/2 L nasal cannula O2. [facility]. Influenza ruled out. Evaluated by infectious disease, antibiotics adjusted and currently on Zyvox and Zosyn. Maintained on nebulized bronchodilators, IV steroids. Hyperglycemic, on insulin drip. Diet intake 100%. Denies nausea vomiting or diarrhea. Sputum sample collected this morning, results pending. Blood and Urine culture pending. Maintained on gentle IV fluid hydration. Currently afebrile, T-max 100.7. Maintaining mid 90s on 8 L nasal cannula. Telemetry sinus rhythm. [address] pending. Blood, sputum, urine cultures pending. Antibiotics as per ID. maintained on nebulized bronchodilators, steroids. Patient progressively worsened over the last few months. As per pulmonology, patient would greatly benefit from evaluation by interstitial lung disease team, surgical lung biopsy. Dr. Lockwood discussed case with HF transplant team and Dr. Crews in MICU. Patient is agreeable for transfer to . Accepted by Dr. Crews for transfer. Patient is being transferred to in a stable condition with guarded prognosis. PHYSICAL EXAM: VITAL SIGNS: As above GENERAL: Sitting up in bed, no acute distress HEENT: Conjunctivae normal. eyes normal. Oral mucosa moist NECK: No JVD. No thyroid enlargement. No LNs CARDIOVASCULAR: S1, S2 muffled. No murmur RESPIRATION: Respiratory effort increased, Breath sounds diminished in the bases with bibasilar crackles, greater on the right-pulmonary fibrosis crackles . No rhonchi, no wheezing. ABDOMEN: Soft, nontender . No guarding. no masses palpable. No ascites, No hepatosplenomegaly.Bowel sounds heard. LEGS: chronic minimal edema, right greater than left PSYCHIATRY: Alert and oriented -3, mood and affect normal. NERVOUS SYSTEM: Cranial N 2-12 grossly normal. Moves all 4 limbs. Diffuse weakness ,No focal deficits. Skin: no lesions, no rash Joints: No active swelling. No inflammation. The impression and plan of care has been dictated as directed. : I performed a history and examination of this patient, discussed the same with the dictator. I agree with the dictator's note ,documented as a scribe. Any additional findings or plans will be noted. Patient Condition at Discharge: Stable Plan - Discharge Summary Discharge Rx Participant: No New Discharge Prescriptions: No Action Insulin Aspart [NovoLOG Flexpen] See Protocol SQ AC-TID Atorvastatin [Lipitor] 20 mg PO HS Multivitamins, Thera [Multivitamin (formulary)] 1 tab PO DAILY [facility]-3 Fatty Acids/Fish Oil [Fish Oil 1,000 mg Softgel] 1 cap PO DAILY Insulin Glargine [Lantus] 50 unit SQ QAM #0 Discharge Medication List Atorvastatin [Lipitor] 20 mg PO HS 06/06/17 [History] Insulin Aspart [NovoLOG Flexpen] See Protocol SQ AC-TID 06/06/17 [History] Multivitamins, Thera [Multivitamin (formulary)] 1 tab PO DAILY 06/06/17 [History] [facility]-3 Fatty Acids/Fish Oil [Fish Oil 1,000 mg Softgel] 1 cap PO DAILY 07/17/18 [History] Insulin Glargine [Lantus] 50 unit SQ QAM #0 07/20/18 [Rx] Follow up Appointment(s)/Referral(s): Harjeet Long DO [Primary Care Provider] - 3 Days Activity/Diet/Wound Care/Special Instructions: [facility] Transfer pending Discharge Disposition: [facility]
== END 2018-11-10 04:31 | disposition short-term general hospital (02) | DRG 871 ==
LOC: EC 10:56 → 2SICU 12:49 → 3SCARD 11-09 10:57
PROVIDERS: ADMIT Family Medicine; ATTEND Family Medicine
DX: A41.9 Sepsis, unspecified organism (principal); J96.21 Acute and chronic respiratory failure with hypoxia; E87.1 Hypo-osmolality and hyponatremia; J44.1 Chronic obstructive pulmonary disease with (acute) exacerbation; J67.9 Hypersensitivity pneumonitis due to unspecified organic dust; E11.65 Type 2 diabetes mellitus with hyperglycemia; E66.9 Obesity, unspecified; E78.5 Hyperlipidemia, unspecified; G47.33 Obstructive sleep apnea (adult) (pediatric); I50.9 Heart failure, unspecified; T38.0X5A Adverse effect of glucocorticoids and synthetic analogues, initial encounter; Z68.32 Body mass index [BMI] 32.0-32.9, adult; Z79.4 Long term (current) use of insulin; Z79.52 Long term (current) use of systemic steroids; Z79.899 Other long term (current) drug therapy; Z80.9 Family history of malignant neoplasm, unspecified; Z82.49 Family history of ischemic heart disease and other diseases of the circulatory system; Z86.14 Personal history of Methicillin resistant Staphylococcus aureus infection; Z87.891 Personal history of nicotine dependence; J84.10 Pulmonary fibrosis, unspecified; Z66 Do not resuscitate; Z77.090 Contact with and (suspected) exposure to asbestos
CPT/HCPCS: 36415; 71045; 71250; 80048; 80053; 82803; 83036; 83605; 83735; 83880; 84484; 85025; 87040; 87070; 87086; 87205; 87502; 93005; 94640; 94660; 94760; 96365; 96375; 99285